=== PATIENT | male | born 1995 | race Caucasian/White ===

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

== ENCOUNTER 2017-02-10 12:19 | Emergency (ER) | payer MEDICAID ==
--- NOTE | 2017-02-10 12:34 | ER Document Report ---
HPI - HPI Patient complains to provider of: hand injury Pain Level: 3 Context: 21 yo male c/o pain and swelling to right hand x 1 day. impact drill fell on hand last night while working on car Associated Symptoms: None Exacerbated by: Movement Relieved by: Denies Similar symptoms previously: No Recently seen / treated by doctor: No - ROS Systems Reviewed and Negative: Yes All other systems reviewed and negative - REPRODUCTIVE Reproductive: DENIES: : - DERM Skin Color: Normal Past Medical History - General Information source: Patient - Social History Smoking Status: Current Every Day Smoker Frequency of alcohol use: None Drug Abuse: None Lives with: Family Family History: Reviewed & Not Pertinent, DM Patient has suicidal ideation: No Patient has homicidal ideation: No Renal/ Medical History: Denies: Hx Peritoneal Dialysis Psychiatric Medical History: Reports: Hx Attention Deficit Hyperactivity Disorder Past Surgical History: Reports: Hx Oral Surgery - Immunizations Immunizations up to date: Yes Hx Diphtheria, Pertussis, Tetanus Vaccination: Yes Vertical Provider Document - CONSTITUTIONAL Agree With Documented VS: Yes Exam Limitations: No Limitations General Appearance: WD/WN, No Apparent Distress - INFECTION CONTROL TRAVEL OUTSIDE OF THE [place] IN LAST 30 DAYS: No - HEENT HEENT: Atraumatic, PERRLA - NECK Neck: Normal Inspection, Supple - RESPIRATORY Respiratory: Breath Sounds Normal, No Respiratory Distress O2 Sat by Pulse Oximetry: 99 - CARDIOVASCULAR Cardiovascular: Regular Rate, Regular Rhythm - MUSCULOSKELETAL/EXTREMETIES Musculoskeletal/Extremeties: Tender, Edema - right dorsal hand, Eccymosis Course - Re-evaluation Re-evalutation: 02/10/17 13:21 xray negative. results reviewed with patient. panchito wrap applied. pt stable for discharge - Vital Signs Vital signs: Temp Pulse Resp BP Pulse Ox 98.0 F 81 14 133/76 H 99 02/10/17 12:23 02/10/17 12:23 02/10/17 12:23 02/10/17 12:23 02/10/17 12:23 Procedures - Immobilization right hand Pre-Proc Neuro Vasc Exam: Normal Immobilizer type: Panchito wrap Performed by: PCT Post-Proc Neuro Vasc Exam: Normal Alignment checked and good: Yes Discharge - Discharge Clinical Impression: Contusion of right hand Qualifiers: Encounter type: initial encounter Qualified Code(s): S60.221A - Contusion of right hand, initial encounter Condition: Stable Disposition: HOME, SELF-CARE Instructions: Contusion ([facility]), Panchito Wrap ([facility]), Ice & Elevation ([facility]), Ibuprofen (General) ([facility]) Additional Instructions: your xrays were negative for fracture today wear panchito wrap for comfort keep hand elevated as much as possible motrin for swelling and pain follow up with primary care if symptoms persist more than 10 days Prescriptions: Ibuprofen [Motrin 800 Mg Tablet] 800 mg PO Q6H #20 tablet
--- NOTE | 2017-02-10 13:17 | RADIOLOGY REPORT (SQ) ---
EXAM DESCRIPTION: HAND RIGHT 3 VIEWS COMPLETED DATE/TIME: 02/10/2017 1:08 pm REASON FOR STUDY: trauma, drill fell on hand COMPARISON: 12/03/2016. EXAM PARAMETERS: NUMBER OF VIEWS: Three views. TECHNIQUE: AP, lateral and oblique radiographic images acquired of the right hand. LIMITATIONS: None. FINDINGS: MINERALIZATION: Normal. BONES: No acute fracture or dislocation. No worrisome bone lesions. JOINTS: No effusions. SOFT TISSUES: Dorsal soft tissue swelling. No foreign body. OTHER: No other significant finding. IMPRESSION: SOFT TISSUE SWELLING. NO ACUTE BONY FINDINGS. TECHNICAL DOCUMENTATION: JOB ID: [id number] [employer]- All Rights Reserved
[2017-02-10 13:55] VITALS: BP 132/74
== END 2017-02-10 13:40 | disposition home or self-care (01) ==
LOC: ER 12:19
DX: S60.221A Contusion of right hand, initial encounter (principal); F17.200 Nicotine dependence, unspecified, uncomplicated; W20.8XXA Other cause of strike by thrown, projected or falling object, initial encounter; Y92.008 Other place in unspecified non-institutional (private) residence as the place of occurrence of the external cause
CPT/HCPCS: 99283

== ENCOUNTER 2017-02-27 17:15 | Emergency (ER) | payer MEDICAID ==
[2017-02-27 17:18] VITALS: BP 127/76
--- NOTE | 2017-02-27 18:45 | RADIOLOGY REPORT (SQ) ---
EXAM DESCRIPTION: HAND RIGHT 3 VIEWS COMPLETED DATE/TIME: 02/27/2017 6:36 pm REASON FOR STUDY: Laceration from broken window COMPARISON: None. EXAM PARAMETERS: NUMBER OF VIEWS: Three views. TECHNIQUE: AP, lateral and oblique radiographic images acquired of the right hand. LIMITATIONS: None. FINDINGS: MINERALIZATION: Normal. BONES: No acute fracture or dislocation. No worrisome bone lesions. JOINTS: No effusions. SOFT TISSUES: No soft tissue swelling; no significant soft tissue injury is evident. No foreign body . OTHER: No other significant finding. IMPRESSION: NO EVIDENCE OF ACUTE OSSEOUS INJURY OR RETAINED RADIOPAQUE FOREIGN BODY. PLEASE NOTE TH AT MOST TYPES OF GLASS ARE NOT EXPECTED TO BE RADIOPAQUE. TECHNICAL DOCUMENTATION: JOB ID: [id number] [employer]- All Rights Reserved
[2017-02-27] MEDS ORDERED: LIDOCAINE 1% INJ-PF (10 MG/ML) 30 ML SDV INJ ONE (19:18)
[2017-02-27] MEDS ORDERED: LIDOCAINE 1% INJ-PF (10 MG/ML) 30 ML SDV ONE (19:22)
--- NOTE | 2017-02-27 19:24 | ER Document Report ---
ED Hand/Wrist Injury - General Chief Complaint: Laceration Stated Complaint: HAND LACERATION Time Seen by Provider: 02/27/17 18:16 Mode of Arrival: Ambulatory Information source: Patient Notes: 12-year-old male presents to ED for laceration to his right hand. He states he was picking up a piece of glass window pain when he had a glass on a cement wall shattering the glass cutting his hand. TRAVEL OUTSIDE OF THE [place] IN LAST 30 DAYS: No - HPI Injury to: Hand, Index finger Onset: This afternoon Where: Home Timing: Still present Quality of pain: Sharp Severity: Moderate Pain Level: 2 Context: Laceration - Related Data Allergies/Adverse Reactions: No Known Allergies Allergy (Verified 02/27/17 17:16) Past Medical History - General Information source: Patient - Social History Smoking Status: Never Smoker Cigarette use (# per day): No Chew tobacco use (# tins/day): No Smoking Education Provided: No Frequency of alcohol use: None Drug Abuse: None Occupation: [employer] Lives with: Family Family History: DM, Hypertension. denies: None, Reviewed & Not Pertinent, Arthritis, CAD, COPD, CVA, Hyperlipidemia, Malignancy, Thyroid Disfunction, Other Patient has suicidal ideation: No Patient has homicidal ideation: No - Past Medical History Cardiac Medical History: Reports: None Pulmonary Medical History: Reports: None EENT Medical History: Reports: None Neurological Medical History: Reports: None Endocrine Medical History: Reports: None Renal/ Medical History: Reports: None Malignancy Medical History: Reports None GI Medical History: Reports: None Musculoskeltal Medical History: Reports None Skin Medical History: Reports None Psychiatric Medical History: Reports: Hx Attention Deficit Hyperactivity Disorder Traumatic Medical History: Reports: None Infectious Medical History: Reports: None Past Surgical History: Reports: Hx Adenoidectomy, Hx Oral Surgery, Hx Tonsillectomy - Immunizations Immunizations up to date: Yes Hx Diphtheria, Pertussis, Tetanus Vaccination: Yes Review of Systems - Review of Systems Constitutional: No symptoms reported EENT: No symptoms reported Cardiovascular: No symptoms reported Respiratory: No symptoms reported Gastrointestinal: No symptoms reported Genitourinary: No symptoms reported Male Genitourinary: No symptoms reported Musculoskeletal: Other - In pain after he cut and when a window he was cutting shattered Skin: No symptoms reported Hematologic/Lymphatic: No symptoms reported Neurological/Psychological: No symptoms reported -: Yes All other systems reviewed and negative Physical Exam - Vital signs Vitals: Temp Pulse Resp BP Pulse Ox 98.0 F 75 20 127/76 H 98 02/27/17 17:16 02/27/17 17:16 02/27/17 17:16 02/27/17 17:16 02/27/17 17:16 Interpretation: Normal - General General appearance: Appears well, Alert - HEENT Head: Normocephalic, Atraumatic Eyes: Normal Pupils: PERRL - Respiratory Respiratory status: No respiratory distress Chest status: Nontender Breath sounds: Normal Chest palpation: Normal - Cardiovascular Rhythm: Regular Heart sounds: Normal auscultation Murmur: No - Abdominal Inspection: Normal Distension: No distension Bowel sounds: Normal Tenderness: Nontender Organomegaly: No organomegaly - Back Back: Normal, Nontender - Extremities General upper extremity: Nontender, Normal color, Normal ROM, Normal temperature General lower extremity: Normal inspection, Nontender, Normal color, Normal ROM , Normal temperature, Normal weight bearing. No: Juan's sign Hand: Tender, Laceration, No evidence of human bite, No evidence of FB. No: Tendon deficit - Neurological Neuro grossly intact: Yes Cognition: Normal Orientation: AAOx4 Ladonna Coma Scale Eye Opening: Spontaneous [place] Coma Scale Verbal: Oriented Ladonna Coma Scale Motor: Obeys Commands Ladonna Coma Scale Total: 15 Speech: Normal Motor strength normal: LUE, RUE, LLE, RLE Sensory: Normal - Psychological Associated symptoms: Normal affect, Normal mood - Skin Skin Temperature: Warm Skin Moisture: Dry Skin Color: Normal Skin irregularity: Laceration Location of irregularity: Extremities - 1.5 cm right second finger, 0.5 cm cut on right hand. Irregularity with: Tenderness Course - Vital Signs Vital signs: Temp Pulse Resp BP Pulse Ox 98.0 F 75 20 127/76 H 98 02/27/17 17:16 02/27/17 17:16 02/27/17 17:16 02/27/17 17:16 02/27/17 17:16 - Diagnostic Test Radiology reviewed: Image reviewed, Reports reviewed Procedures - Laceration/Wound Repair Right Finger 2nd digit Time completed: 19:43 Wound length (cm): 1.5 Wound's Depth, Shape: Superficial, Linear Laceration pre-procedure: Other - Surgical scrub Anesthetic type: 1% Lidocaine Wound explored: No foreign body removed Irrigated w/ Saline (mLs): 100 Wound Repaired With: Sutures Suture Size/Type: 5:0, Ethilon Number of Sutures: 2 Layer Closure?: No Post-procedure wound care: Sterile dressing applied Post-procedure NV exam normal: Yes Complications: No Discharge - Discharge Clinical Impression: laceration right 2nd finger Condition: Stable Disposition: HOME, SELF-CARE Additional Instructions: Hand Laceration A laceration on the hand can present special problems. It may be difficult to keep the wound dry. Motion of the fingers can disturb the healing edges. Your work may involve exposure to damaging chemicals or water. Keep the wound clean and dry. If you can't keep the cut dry, undisturbed, and free of chemical exposure, please discuss this with the doctor. If any water or chemical gets onto the dressing, remove it, blot the wound dry, then apply a fresh bandage. Dressings should be changed every day. If you feel the stitches pulling as you move the hand, a splint or other form of protection is needed. If any signs of infection occur (swelling, redness, increasing tenderness, red streaks, tender lumps in the armpit, or fever), see the doctor immediately. SOAP CLEANSING: Gently wash the wound daily using a mild soap (like Ivory, Phisoderm, Neutrogena). Use warm water, rubbing gently until all debris, ooze, and crusting have been washed from the wound. Allow to dry briefly (about 10 minutes) after cleaning. Repeat this cleansing at least three times a day for the first two days and then once or twice a day. ANTIBIOTIC OINTMENT PROTECTION: Your wounds are such that dressing them is not practical or optional. After cleansing, you should apply a thin coating of antibiotic ointment ( Bacitracin, not Neosporin) to the wounds at least three times daily. This lessens infection risk, and may decrease the amount of scarring. Use a q-tip or dull butter knife, not your finger, to apply this ointment. Any debris or ooze which builds up in the ointment should be gently rubbed off with a sterile gauze pad. Harder crusting may need to be gently scrubbed off with a clean wash cloth with soap and warm water, perhaps applying a warm, wet wash cloth to the wound for ten minutes first. Development of redness, severe itching, or blistering may mean allergy to the ointment. See the doctor. TETANUS IMMUNIZATION GIVEN: You have been given an immunization against tetanus. Please record this in your records. In general, a booster is needed only once every 10 years. The tetanus shot protects against tetanus or "lockjaw," which is a complication of certain wound infections (the tetanus shot cannot protect against the actual infection). The immunization site may become warm and red due to local reaction. If this occurs, apply warm compresses and take aspirin or ibuprofen to reduce inflammation and discomfort. Return for evaluation if the reaction becomes severe. FOLLOW-UP CARE: Please return in __2__ days for an infection check and dressing change. Your sutures should be removed in __7___ days. To facilitate a timely removal of your sutures, you may return to the Emergency Department at [facility]. You do not need to call for an appointment, but the best time to come in for suture removal is early in the morning. If you have been referred to another physician for follow-up care, call that physicians office for an appointment as you were instructed. If you experience a significant change in your laceration, or if you are concerned there may be an infection (swelling, redness, drainage, increasing tenderness, red streaks, tender lumps in the armpit or groin above the laceration, or fever) , return to the Emergency Department immediately re-evaluation. Forms: Elevated Blood Pressure Referrals: DUSTY BOLIVAR MD [Primary Care Provider] - Follow up as needed
== END 2017-02-27 20:11 | disposition home or self-care (01) ==
LOC: ER 17:15
PROC: 0HQFXZZ Repair Right Hand Skin, External Approach (ICD-10-PCS; principal; 2017-02-27)
DX: S61.210A Laceration without foreign body of right index finger without damage to nail, initial encounter (principal); S61.411A Laceration without foreign body of right hand, initial encounter; W25.XXXA Contact with sharp glass, initial encounter; Y92.009 Unspecified place in unspecified non-institutional (private) residence as the place of occurrence of the external cause
CPT/HCPCS: 99283

== ENCOUNTER 2017-03-24 10:26 | Emergency (ER) | payer MEDICAID ==
[2017-03-24 10:35] VITALS: BP 116/83
[2017-03-24 12:11] LABS: APPEARANCE,URINE CLEAR; BILIRUBIN,URINE NEGATIVE (NEGATIVE); GLUCOSE, URINE NEGATIVE (NEGATIVE); KETONES,URINE NEGATIVE (NEGATIVE); LEUKOCYTE ESTERASE,URINE NEGATIVE (NEGATIVE); NITRITE,URINE NEGATIVE (NEGATIVE); PROTEIN,URINE NEGATIVE (NEGATIVE); URINE SPECIFIC GRAVITY 1.018; UROBILINOGEN,URINE NEGATIVE mg/dL (<2.0)
--- NOTE | 2017-03-24 12:32 | ER Document Report ---
ED General - General Chief Complaint: Chest Wall Pain Stated Complaint: CHEST PAIN/URINARY SYMPTOMS Time Seen by Provider: 03/24/17 11:41 Notes: 21 yo male presents to ED with 2 complaints. #1 left chest pain intermittant x several months. hurts to breathe, take deep breaths and move trunk. no cough, no shortness of breath, no fever #2 dysuria x 1 week. denies penile discharge, testicular pain. + sexually active in monogamous relationship TRAVEL OUTSIDE OF THE [place] 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 denies: None, Reviewed & Not Pertinent, Arthritis, CAD, COPD, CVA, Hyperlipidemia, Malignancy, Thyroid Disfunction, Other Patient has suicidal ideation: No Patient has homicidal ideation: No - Medical History Medical History: Negative Renal/ Medical History: Denies: Hx Peritoneal Dialysis Psychiatric Medical History: Reports: Hx Attention Deficit Hyperactivity Disorder Past Surgical History: Reports: Hx Adenoidectomy, Hx Oral Surgery, Hx Tonsillectomy - Immunizations Immunizations up to date: Yes Hx Diphtheria, Pertussis, Tetanus Vaccination: Yes Review of Systems - Review of Systems Constitutional: No symptoms reported EENT: No symptoms reported Cardiovascular: Chest pain, Heart racing Respiratory: No symptoms reported Gastrointestinal: No symptoms reported Genitourinary: Burning, Dysuria Male Genitourinary: No symptoms reported Musculoskeletal: No symptoms reported Skin: No symptoms reported Hematologic/Lymphatic: No symptoms reported Neurological/Psychological: No symptoms reported Physical Exam - Vital signs Vitals: Temp Pulse Resp BP Pulse Ox 98.2 F 89 16 116/83 100 03/24/17 10:33 03/24/17 10:33 03/24/17 10:33 03/24/17 10:33 03/24/17 10:33 Interpretation: Normal - General General appearance: Appears well, Alert - HEENT Head: Normocephalic, Atraumatic Eyes: Normal Pupils: PERRL - Respiratory Respiratory status: No respiratory distress Chest status: Tender - focal tenderness left lateral intercostals Breath sounds: Normal Chest palpation: Normal - Cardiovascular Rhythm: Regular Heart sounds: Normal auscultation Murmur: No - Abdominal Inspection: Normal Distension: No distension Bowel sounds: Normal Tenderness: Nontender Organomegaly: No organomegaly - Back Back: Normal, Nontender - Extremities General upper extremity: Normal inspection, Nontender, Normal color, Normal ROM , Normal temperature General lower extremity: Normal inspection, Nontender, Normal color, Normal ROM , Normal temperature, Normal weight bearing. No: Juan's sign - Neurological Neuro grossly intact: Yes Cognition: Normal Orientation: AAOx4 [place] Coma Scale Eye Opening: Spontaneous [place] Coma Scale Verbal: Oriented [place] Coma Scale Motor: Obeys Commands [place] Coma Scale Total: 15 Speech: Normal Motor strength normal: LUE, RUE, LLE, RLE Sensory: Normal - Psychological Associated symptoms: Normal affect, Normal mood - Skin Skin Temperature: Warm Skin Moisture: Dry Skin Color: Normal Course - Re-evaluation Re-evalutation: 03/24/17 13:59 EKG, Chest xray and labs all unremarkable. results reviewed with patient and parent. pt stable for discharge and follow up with primary care - Vital Signs Vital signs: Temp Pulse Resp BP Pulse Ox 98.2 F 89 16 116/83 100 03/24/17 10:33 03/24/17 10:33 03/24/17 10:33 03/24/17 10:33 03/24/17 10:33 - Laboratory Result Diagrams: 03/24/17 12:25 03/24/17 12:25 Laboratory results interpreted by me: 03/24/17 03/24/17 12:25 12:25 RBC 5.82 H Glucose 59 L Total Bilirubin 1.6 H Total Protein 9.0 H Discharge - Discharge Clinical Impression: Chest wall pain, Dysuria Condition: Stable Disposition: HOME, SELF-CARE Instructions: Chest Wall Pain ([facility]), Anti-Inflammatory Medication ([facility]) Additional Instructions: Your labs, xray and EKG were normal today Take anti inflammatory medication as needed for discomfort Follow up with primary care for further evaluation if symptoms persist Prescriptions: Ibuprofen [Motrin 800 Mg Tablet] 800 mg PO Q6H #20 tablet
[2017-03-24 12:48] LABS: ABSOLUTE EOSINOPHILS # (AUTO) 0.1 10^3/uL (0.0-0.6); ABSOLUTE LYMPHOCYTES (AUTO) 1.9 10^3/uL (0.5-4.7); ABSOLUTE MONOCYTES (AUTO) 0.4 10^3/uL (0.1-1.4); ABSOLUTE NEUT (AUTO) 3.2 10^3/uL (1.7-8.2); BASOPHILS % (AUTO) 0.8 % (0-2); EOSINOPHILS % (AUTO) 1.5 % (0-6); HEMATOCRIT 50.9 % (37.9-51.0); HEMOGLOBIN 16.6 g/dL (13.5-17.0); HGB HCT DIFFERENCE -1.1; LYMPHOCYTES % (AUTO) 33.9 % (13-45); MEAN CORPUSCULAR HEMOGLOBIN 28.5 pg (27.0-33.4); MEAN CORPUSCULAR HGB CONC 32.6 g/dL (32.0-36.0); MEAN CORPUSCULAR VOLUME 88 fl (80-97); MONOCYTES % (AUTO) 7.4 % (3-13); RED BLOOD COUNT 5.82 10^6/uL (4.35-5.55); RED CELL DISTRIBUTION WIDTH 12.2 % (11.5-14.0); SEGMENTED NEUTROPHILS % (AUTO) 56.4 % (42-78); WHITE BLOOD COUNT 5.7 10^3/uL (4.0-10.5)
[2017-03-24 13:01] LABS: ALANINE AMINOTRANSFERASE 24 U/L (10-40); ALBUMIN 5.1 g/dL (3.7-5.6); ALKALINE PHOSPHATASE 95 U/L (65-260); ANION GAP 15 (5-19); ASPARTATE AMINO TRANSFERASE 24 U/L (10-45); BILIRUBIN,DIRECT 0.3 mg/dL (0.0-0.4); BILIRUBIN,TOTAL 1.6 mg/dL (0.2-1.3); BLOOD UREA NITROGEN 13 mg/dL (7-20); CARBON DIOXIDE 26 mmol/L (22-30); CHLORIDE 103 mmol/L (98-107); GLUCOSE 59 mg/dL (75-110); POTASSIUM 4.3 mmol/L (3.6-5.0); SODIUM 144.1 mmol/L (137-145)
--- NOTE | 2017-03-24 13:02 | EKG REPORT ---
SEVERITY:- BORDERLINE ECG - SINUS RHYTHM NONSPECIFIC ST-T CHANGES LATERAL LEADS. : Confirmed by: Marin Greco MD 24-Mar-2017 13:01:50
--- NOTE | 2017-03-24 13:17 | RADIOLOGY REPORT (SQ) ---
EXAM DESCRIPTION: CHEST PA/LAT COMPLETED DATE/TIME: 03/24/2017 12:59 pm REASON FOR STUDY: chest pain COMPARISON: None. EXAM PARAMETERS: NUMBER OF VIEWS: two views TECHNIQUE: Digital Frontal and Lateral radiographic views of the chest acquired. RADIATION DOSE: NA LIMITATIONS: none FINDINGS: LUNGS AND PLEURA: No opacities, masses or pneumothorax. No pleural effusion. MEDIASTINUM AND HILAR STRUCTURES: No masses or contour abnormalities. HEART AND VASCULAR STRUCTURES: Heart normal size. No evidence for failure. BONES: No acute findings. HARDWARE: None in the chest. OTHER: No other significant finding. IMPRESSION: NO SIGNIFICANT RADIOGRAPHIC FINDING IN THE CHEST. TECHNICAL DOCUMENTATION: JOB ID: [id number] [employer]- All Rights Reserved
[2017-03-24 13:41] LABS: CHLAM PCR NOT DETECTED (NOT DETECT)
== END 2017-03-24 14:30 | disposition home or self-care (01) ==
LOC: ER 10:26
DX: R07.89 Other chest pain (principal); R30.0 Dysuria
CPT/HCPCS: 36415; 71020; 80053; 81001; 84443; 85025; 87491; 87591; 93005; 93010; 99284

== ENCOUNTER 2017-04-03 16:37 | Emergency (ER) | payer MEDICAID ==
[2017-04-03 16:49] VITALS: BP 131/82
[2017-04-03] MEDS ORDERED: CEPHALEXIN 500 MG CAPSULE PO ONE (17:25)
--- NOTE | 2017-04-03 17:37 | ER Document Report ---
HPI - HPI Patient complains to provider of: laceration Pain Level: 3 Context: Patient is a 21-year-old male presents emergency department complaining of right hand laceration. Patient has wound knee radial aspect of the second digit as well as the palmar aspect of the third digit. cut it on something "metal" Patient admits to bleeding. 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 Patient admits to contact with fecal matter. tetanus UTD - CARDIOVASCULAR Cardiovascular: DENIES: Chest pain - REPRODUCTIVE Reproductive: DENIES: : - DERM Skin Color: Normal Past Medical History - Social History Smoking Status: Never Smoker Chew tobacco use (# tins/day): No Frequency of alcohol use: None Drug Abuse: None Family History: DM, Hypertension. denies: None, Reviewed & Not Pertinent, Arthritis, CAD, COPD, CVA, Hyperlipidemia, Malignancy, Thyroid Disfunction, Other Patient has suicidal ideation: No Patient has homicidal ideation: No Renal/ Medical History: Denies: Hx Peritoneal Dialysis Psychiatric Medical History: Reports: Hx Attention Deficit Hyperactivity Disorder Past Surgical History: Reports: Hx Adenoidectomy, Hx Oral Surgery, Hx Tonsillectomy - Immunizations Immunizations up to date: Yes Hx Diphtheria, Pertussis, Tetanus Vaccination: Yes Vertical Provider Document - CONSTITUTIONAL Agree With Documented VS: Yes Exam Limitations: No Limitations General Appearance: WD/WN, No Apparent Distress - INFECTION CONTROL TRAVEL OUTSIDE OF THE [place] IN LAST 30 DAYS: No - RESPIRATORY O2 Sat by Pulse Oximetry: 99 - CARDIOVASCULAR Pulses: Normal: Radial - cap refill < 2 seconds - MUSCULOSKELETAL/EXTREMETIES Musculoskeletal/Extremeties: MAEW, FROM, Non-Tender - NEURO Level of Consciousness: Awake, Alert, Appropriate Motor/Sensory: No Motor Deficit, No Sensory Deficit - DERM Integumentary: Warm, Dry, Laceration - superficial flap on the palmar aspect of the right third digit without signs of bleeding or involvement of the dermis, superficial abrasion of the second digit Course - Re-evaluation Re-evalutation: 04/03/17 19:53 Patient is a 21-year-old male with superficial abrasions and superficial flap laceration of the hand. Irrigated with Betadine and saline. Placed on Keflex for prophylaxis to cover for any fecal contaminant. Abrasion dressed with Steri -Strips. Patient discharged home. - Vital Signs Vital signs: Temp Pulse Resp BP Pulse Ox 98.3 F 66 16 131/82 H 99 04/03/17 16:48 04/03/17 16:48 04/03/17 16:48 04/03/17 16:48 04/03/17 16:48 Discharge - Discharge Clinical Impression: Laceration Condition: Good Disposition: HOME, SELF-CARE Instructions: Prophylactic Antibiotic ([facility]), Soap Cleansing ([facility]), Non-Sutured Laceration ([facility]) Additional Instructions: Leave the Steri-Strips intact until it falls off on its own. Please try to keep her hands clean, dry and covered until this wound heals. Please take all of your antibiotics as prescribed. Prescriptions: Cephalexin Monohydrate [Keflex 500 mg Capsule] 500 mg PO QID #20 capsule Forms: Elevated Blood Pressure Referrals: DUSTY BOLIVAR MD [Primary Care Provider] - Follow up as needed
== END 2017-04-03 18:00 | disposition home or self-care (01) ==
LOC: ER 16:37
DX: S61.212A Laceration without foreign body of right middle finger without damage to nail, initial encounter (principal); W45.8XXA Other foreign body or object entering through skin, initial encounter; Y93.89 Activity, other specified; Y92.79 Other farm location as the place of occurrence of the external cause; Y99.0 Civilian activity done for income or pay
CPT/HCPCS: 99282

== ENCOUNTER 2017-05-04 22:09 | Emergency (ER) | payer MEDICAID ==
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
[2017-05-05] MEDS ORDERED: KETOROLAC TROMETHAMINE INJ/PF 30 MG/1 ML SDV IV ONE (00:26)
[2017-05-05] MEDS ORDERED: LIDOCAINE 5% (700 MG) TRANSDERMAL ADH..PATCH TP ONE (00:26)
[2017-05-05] MEDS ORDERED: CYCLOBENZAPRINE HCL 10 MG TABLET PO ONE (00:26)
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
[2017-05-05 01:49] VITALS: BP 119/82
== END 2017-05-05 01:10 | disposition home or self-care (01) ==
LOC: ER 22:09
DX: M54.9 Dorsalgia, unspecified (principal); M25.511 Pain in right shoulder; M79.1 Myalgia; Y04.2XXA Assault by strike against or bumped into by another person, initial encounter; Y92.000 Kitchen of unspecified non-institutional (private) residence as the place of occurrence of the external cause
CPT/HCPCS: 99284; 96374; 73030; J3490 ×2; J1885

== ENCOUNTER 2017-05-31 10:37 | Emergency (ER) | payer MEDICAID, OTHER ==
[2017-05-31] MEDS ORDERED: DEXAMETHASONE SOD PHOS INJ 10 MG/1 ML VIAL IM ONE (11:21)
[2017-05-31] MEDS ORDERED: IBUPROFEN 800 MG TABLET PO ONE (11:21)
--- NOTE | 2017-05-31 11:23 | ER Document Report ---
ED Neck/Back Problem - General Chief Complaint: Low Back Pain Stated Complaint: BACK PAIN Time Seen by Provider: 05/31/17 11:10 Mode of Arrival: Ambulatory Information source: Patient Notes: 21-year-old male presents to ED for low back pain after work yesterday. He states he was lifting and dragging things and he felt a pop. He has had pain in his lower back and radiating down both legs since then. He states he has increased pain with walking or sitting. He denies any loss of control of bowel or bladder, loss of muscle control, or any saddle anesthesia. He states he does get nauseated at time from the pain. TRAVEL OUTSIDE OF THE [place] 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 denies: Incontinence, Like prior neck/back pain, Motor loss, Numbness/tingling, Sensory loss, Sweaty, Unable to urinate, Upper back pain Exacerbated by: Sitting position, Other - Walking Relieved by: Nothing Similar symptoms previously: Yes Recently seen / treated by doctor: Yes - Related Data Allergies/Adverse Reactions: No Known Allergies Allergy (Verified 05/31/17 10:41) Past Medical History - General Information source: Patient - Social History Smoking Status: Never Smoker Cigarette use (# per day): No Chew tobacco use (# tins/day): No Smoking Education Provided: No Frequency of alcohol use: None Lives with: Family Family History: DM, Hypertension Patient has suicidal ideation: No Patient has homicidal ideation: No - Past Medical History Cardiac Medical History: Reports: None Pulmonary Medical History: Reports: Hx Bronchitis EENT Medical History: Reports: None Neurological Medical History: Reports: None Endocrine Medical History: Reports: None Renal/ Medical History: Reports: None Malignancy Medical History: Reports None GI Medical History: Reports: None Musculoskeltal Medical History: Reports Hx Musculoskeletal Deformity - Degenerative disc disease with sciatica, Reports Hx Musculoskeletal Trauma Skin Medical History: Reports None Psychiatric Medical History: Reports: Hx Attention Deficit Hyperactivity Disorder Traumatic Medical History: Denies: Hx Fractures Infectious Medical History: Reports: None Past Surgical History: Reports: Hx Adenoidectomy, Hx Oral Surgery, Hx Tonsillectomy - Immunizations Immunizations up to date: Yes Hx Diphtheria, Pertussis, Tetanus Vaccination: Yes Review of Systems - Review of Systems Constitutional: No symptoms reported EENT: No symptoms reported Cardiovascular: No symptoms reported Respiratory: No symptoms reported Gastrointestinal: No symptoms reported Genitourinary: No symptoms reported Male Genitourinary: No symptoms reported Musculoskeletal: Back pain, Muscle pain, Muscle stiffness Skin: No symptoms reported Hematologic/Lymphatic: No symptoms reported Neurological/Psychological: No symptoms reported -: Yes All other systems reviewed and negative Physical Exam - Vital signs Vitals: Temp Pulse Resp BP Pulse Ox 98.6 F 89 18 123/75 99 05/31/17 10:40 05/31/17 10:40 05/31/17 10:40 05/31/17 10:40 05/31/17 10:40 Interpretation: Normal - General General appearance: Appears well, Alert - HEENT Head: Normocephalic, Atraumatic Eyes: Normal Pupils: PERRL - Respiratory Respiratory status: No respiratory distress Chest status: Nontender Breath sounds: Normal Chest palpation: Normal - Cardiovascular Rhythm: Regular Heart sounds: Normal auscultation Murmur: No - Abdominal Inspection: Normal Distension: No distension Bowel sounds: Normal Tenderness: Nontender Organomegaly: No organomegaly - Back Back: Normal, Tender. No: Deformity/step-off, CVA tenderness, Vertebra tenderness - . Vertebral tenderness radiating down the bilateral legs. Negative leg lift., Scars, Scoliosis, Wounds, Other - Extremities General upper extremity: Normal inspection, Nontender, Normal color, Normal ROM , Normal temperature General lower extremity: Normal inspection, Nontender, Normal color, Normal ROM , Normal temperature, Normal weight bearing. No: Juan's sign - Neurological Neuro grossly intact: Yes Cognition: Normal Orientation: AAOx4 Ladonna Coma Scale Eye Opening: Spontaneous Willis Coma Scale Verbal: Oriented Ladonna Coma Scale Motor: Obeys Commands Willis Coma Scale Total: 15 Speech: Normal Motor strength normal: LUE, RUE, LLE, RLE Sensory: Normal - Psychological Associated symptoms: Normal affect, Normal mood - Skin Skin Temperature: Warm Skin Moisture: Dry Skin Color: Normal Course - Re-evaluation Re-evalutation: 05/31/17 15:16 Discussed x-ray with patient and patient was given a written report of the x- ray patient given prescription for ibuprofen and muscle relaxants and instructed to follow-up with his primary doctor. - Vital Signs Vital signs: Temp Pulse Resp BP Pulse Ox 98.1 F 80 16 120/70 100 05/31/17 13:02 05/31/17 13:02 05/31/17 13:02 05/31/17 13:02 05/31/17 13:02 - Diagnostic Test Radiology reviewed: Image reviewed, Reports reviewed Discharge - Discharge Clinical Impression: mild facit arthropathy Low back pain Qualifiers: Chronicity: chronic Back pain laterality: bilateral Sciatica presence: with sciatica Sciatica laterality: bilateral sciatica Qualified Code(s): M54.42 - Lumbago with sciatica, left side Scoliosis Qualifiers: Scoliosis type: idiopathic Idiopathic scoliosis type: other Spinal region: lumbosacral Qualified Code(s): M41.27 - Other idiopathic scoliosis, lumbosacral region Condition: Stable Disposition: HOME, SELF-CARE Instructions: Use of Rftk-Hwx-Zmmlewd Ibuprofen ([facility]), Stretching Exercises for the Back ([facility]) Additional Instructions: LOW BACK PAIN: Three out of every four people will have an episode of disabling back pain during their lifetime. Most commonly the pain is due to straining of the muscles and ligaments in the low back. Usual treatment includes: (1) Rest on a firm surface. Avoid lying on your stomach. (2) Ice pack the painful area. After a few days, gentle heat may be used intermittently to relax the area, or ice packs can be continued. (3) Medication may be needed -- muscle relaxers and antiinflammatory medicines are commonly used. (4) As the back improves, exercises are prescribed to strengthen the back and abdominal muscles. Your doctor will advise you on the proper care for your back at each stage in your recovery. You may be better in a few days -- or healing may take several weeks. If new symptoms of a "herniated disc" (radiation of pain, numbness, or tingling down the back of the leg or weakness in the leg) occur, you should be re-examined. Further testing may be necessary. Chronic Back Pain Chronic back pain (pain persisting longer than three months) is a common problem. A medical evaluation can look for herniated disc, arthritis, osteoporosis, tumors, and infections. But at least half the time, there's no obvious treatable cause. Anxiety and depression tend to worsen back pain. Ibuprofen or other anti-inflammatory medicine can help. A heating pad, used for 15-20 minutes at a time, can ease pain. For this type of back pain, narcotic medicines should be avoided. Muscle relaxers are rarely helpful unless you're having spasms. Activity is important. Find an aerobic exercise program that your back can tolerate. Too much rest makes back pain worse. Specific back exercises are usually prescribed to strengthen the back and abdominal muscles. Often, a physical therapist can help. Avoid heavy lifting, working while bent over, or standing with both knees straight. Most back pain patients do better with a firm mattress. If new symptoms of a "herniated disc" (radiation of pain, numbness, or tingling down the back of the leg or weakness in the leg) occur, you should be re-examined. Chronic Pain Control Stress, inactivity, and depression make pain more severe regardless of the cause of the pain. Stress and poor physical condition can cause pain such as headaches and backache. Relaxation: Rest in a quiet place with your eyes closed for 20 minutes twice daily. Concentrate on a pleasant image, or simply "feel" your breathing. Clear your mind. Stress management: Deal with your "stressors." Either take action, or eliminate the stressor from your life. Don't let things hang over you. Accept those things you can't change. Nutrition: Eat small, balanced meals -- don't skip, don't overeat. Meals should be high-carbohydrate, low-sugar, low-fat. Exercise: Exercise helps painful conditions and eases stress. Get 30 minutes of moderate exercise, five days a week. Do an activity that does not flare your pain. Precautions: Pain which continues to disrupt daily activities, or which changes in nature, requires a medical evaluation. Pain Clinic referral is available. We do not manage chronic pain in the Emergency Department. We will try to appropriately help you through an acute flare of your chronic painful condition , but for on-going chronic pain that does not improve, you will need to see your private doctor or painter [employer]. We do not provide repeated medication management of chronic painful conditions. If you wish, we can provide the name of local pain management physicians. Sciatica Your symptoms suggest "sciatica." The pain of sciatica typically radiates down the leg. Numbness in the foot or calf may also occur. Sciatica is caused by irritation of the sciatic nerve or its branches. The irritation can be due to a herniated disk in the spine, swelling and inflammation in the muscles surrounding the sciatic nerve, or direct injury of the nerve itself. Most cases of sciatica will resolve with medical treatment. Bed rest is usually recommended initially. Surgery is only necessary when the condition will not improve with rest and antiinflammatory medication. Muscle relaxers are often given if muscle soreness is present. A CAT scan of the back may be performed if a herniated disk is suspected. Re-examination is necessary if you develop increasing numbness, localized weakness in the foot or ankle, or if the pain does not respond to rest. STEROID MEDICATION: You have been given an injection of medicine of the cortisone/steroid class. This medication is used to control inflammation or allergy. It is often continued as a pill for a short period of time, until the acute process subsides. There are usually no side effects from short-term use of cortisone-like medications. Some persons feel an increased sense of well-being and are not sleepy at bedtime. Long-term use of cortisone medications is best avoided, unless required for a severe condition. If your condition does not remit, or relapses after the course of corticosteroid medication, you should consult your physician. Antinausea Medication You have been given a medication to suppress nausea and vomiting. This type of medication can be given as a shot, pill, or suppository. It will usually last for many hours. Pills and shots usually last six to eight hours, suppositories last about 12 hours. For the typical illness, only one or two doses of the medication may be necessary. Mild lightheadedness may occur. This type of medicine can cause drowsiness. Do not drive or operate dangerous machinery while under its influence. Do not mix with alcohol. See your doctor at once if you have muscle spasms or tightness, or uncontrollable motions (particularly of the neck, mouth, or jaw). Persistent vomiting or severe lightheadedness should also be evaluated by the physician. Muscle Relaxers Muscle relaxing medications are usually prescribed for acute muscle spasm or injury to the neck and back. They are often combined with antiinflammatory pain medication for increased relief. You may stop the muscle relaxer when the pain and stiffness have improved. Start the medication again if spasms recur. Muscle relaxers may cause drowsiness, especially with the first dose. Do not operate machinery or drive while under the effects of the medication. Most muscle relaxers last up to 24 hours. Do not combine the medication with alcohol. ICE PACKS: Apply ice packs frequently against the painful area. Many different schedules are recommended, such as "20 minutes on, 20 minutes off" or "one hour ice, two hours rest." If you need to work, you may need to go longer between ice treatments. You should plan to have the area ice packed AT LEAST one fourth of the time. The ice should be applied over the wrap, tape, or splint, or over a layer of cloth -- not directly against the skin. Some ice bags have a built-in cloth and can be put directly on the skin. WARM PACKS: After approximately two days, apply gentle heat (such as a heating pad or hot water bottle) for about 20 to 30 minutes about every two hours -- at least four times daily. Warmth and elevation will help you make a more rapid recovery , and will ease the pain considerably. Do not use HOT heat, and never apply heat for longer than 30 minutes. The continuous heat can invisibly damage skin and muscles -- even when no burn is seen on the surface. Damaged muscles can make you MORE sore. FOLLOW-UP CARE: If you have been referred to a physician for follow-up care, call the physician s office for an appointment as you were instructed or within the next two days. If you experience worsening or a significant change in your symptoms, notify the physician immediately or return to the Emergency Department at any time for re-evaluation. Prescriptions: Ibuprofen 600 mg PO Q8HP PRN #20 tablet PRN Reason: Cyclobenzaprine HCl [Flexeril 5 mg Tablet] 5 mg PO TID #15 tablet Promethazine HCl [Phenergan 25 mg Tablet] 25 mg PO Q6H PRN #15 tablet PRN Reason: Forms: Return to Work Referrals: DUSTY BOLIVAR MD [Primary Care Provider] - Follow up as needed
--- NOTE | 2017-05-31 12:23 | RADIOLOGY REPORT (SQ) ---
EXAM DESCRIPTION: L SPINE WHOLE COMPLETED DATE/TIME: 05/31/2017 11:51 am REASON FOR STUDY: lumbar back pain after lifting radiates both legs COMPARISON: 07/31/2014 NUMBER OF VIEWS: Five views including obliques. TECHNIQUE: AP, lateral, oblique, and sacral radiographic images acquired of the lumbar spine. LIMITATIONS: None. FINDINGS: MINERALIZATION: Normal. SEGMENTATION: Normal. No transitional anatomy. ALIGNMENT: Mild levoscoliosis. VERTEBRAE: Maintained height. No fracture or worrisome bone lesion. DISCS: Preserved height. No significant osteophytes or end plate irregularity. POSTERIOR ELEMENTS: Mild hypertrophic facet changes are present at L5-S1. HARDWARE: None in the spine. PARASPINAL SOFT TISSUES: Normal. PELVIS: Intact as visualized. No fractures or worrisome bone lesions. SI joints intact. OTHER: No other significant finding. IMPRESSION: Mild scoliosis. Mild facet arthropathy. TECHNICAL DOCUMENTATION: JOB ID: [id number] [employer]- All Rights Reserved
[2017-05-31 13:09] VITALS: BP 120/70
== END 2017-05-31 13:05 | disposition home or self-care (01) ==
LOC: ER 10:37
DX: M54.42 Lumbago with sciatica, left side (principal); M41.27 Other idiopathic scoliosis, lumbosacral region; M12.9 Arthropathy, unspecified; M54.5 Low back pain; M79.604 Pain in right leg; M79.605 Pain in left leg; X50.9XXA Other and unspecified overexertion or strenuous movements or postures, initial encounter
CPT/HCPCS: 99283; 96372; 72110; J3490; J1100

== ENCOUNTER 2017-08-27 17:36 | Emergency (ER) | payer MEDICAID ==
--- NOTE | 2017-08-27 18:08 | ER Document Report ---
HPI - HPI Patient complains to provider of: Cut finger Onset: Just prior to arrival Onset/Duration: Sudden Pain Level: 3 Context: 21-year-old whose tetanus is current, cut his right thumb wall cutting metal with a blade prior to arrival. Associated Symptoms: None Exacerbated by: Movement Relieved by: Denies Similar symptoms previously: No Recently seen / treated by doctor: No - ROS ROS below otherwise negative: Yes Systems Reviewed and Negative: Yes All other systems reviewed and negative - REPRODUCTIVE Reproductive: DENIES: : Past Medical History - General Information source: Patient - Social History Smoking Status: Current Every Day Smoker Frequency of alcohol use: None Drug Abuse: None Lives with: Family Family History: DM, Hypertension Pulmonary Medical History: Reports: Hx Bronchitis Renal/ Medical History: Denies: Hx Peritoneal Dialysis Musculoskeltal Medical History: Reports Hx Arthritis, Reports Hx Musculoskeletal Deformity - Degenerative disc disease with sciatica, Reports Hx Musculoskeletal Trauma Psychiatric Medical History: Reports: Hx Attention Deficit Hyperactivity Disorder Traumatic Medical History: Denies: Hx Fractures Past Surgical History: Reports: Hx Adenoidectomy, Hx Oral Surgery, Hx Tonsillectomy - Immunizations Immunizations up to date: Yes Hx Diphtheria, Pertussis, Tetanus Vaccination: Yes Vertical Provider Document - CONSTITUTIONAL Agree With Documented VS: Yes Exam Limitations: No Limitations - INFECTION CONTROL TRAVEL OUTSIDE OF THE [place] IN LAST 30 DAYS: No - HEENT HEENT: Normocephalic - NECK Neck: Supple - RESPIRATORY O2 Sat by Pulse Oximetry: 99 - MUSCULOSKELETAL/EXTREMETIES Musculoskeletal/Extremeties: MAEW, FROM, Tender - Partial-thickness 1 cm cut to the right thumb over the mid proximal dorsal joints. - NEURO Level of Consciousness: Awake, Alert Motor/Sensory: No Motor Deficit, No Sensory Deficit - DERM Integumentary: Warm, Dry, Laceration - See above Course - Re-evaluation Re-evalutation: 08/27/17 19:38 X-ray is negative per radiologist there was no bone injury - Vital Signs Vital signs: Temp Pulse Resp BP Pulse Ox 98.3 F 67 16 140/76 H 99 08/27/17 17:46 08/27/17 17:46 08/27/17 17:46 08/27/17 17:46 08/27/17 17:46 Procedures - Laceration/Wound Repair Right Thumb Time completed: 19:38 Wound length (cm): 1 Wound's Depth, Shape: Linear, Other - partial thickness Laceration pre-procedure: Sterile drapes applied Anesthetic type: 1% Lidocaine Volume Anesthetic (mLs): 3 Wound explored: Clean Irrigated w/ Saline (mLs): 60 Wound Repaired With: Sutures Suture Size/Type: 4:0, Prolene Number of Sutures: 2 Layer Closure?: No Post-procedure NV exam normal: Yes Complications: No Discharge - Discharge Clinical Impression: Right thumb laceration repair Condition: Good Disposition: HOME, SELF-CARE Instructions: Acetaminophen, Antibiotic Ointment Protection ([facility]), Use of Over- The-Counter Ibuprofen ([facility]), Laceration Care ([facility]) Additional Instructions: Keep that dressing on for 48 hours Keep the wound clean and dry there after Return to the emergency room for suture removal in 9 days Return sooner if there is any redness swelling pus or heat Please complete the patient satisfaction survey if you get one, and return it.. If you do not receive a survey, then you can go to the [facility] website, [email or web address] and place your comments about your very good care. Thank you very much. It was a pleasure being your medical provider today. Referrals: DUSTY BOLIVAR MD [Primary Care Provider] - Follow up as needed
[2017-08-27] MEDS ORDERED: LIDOCAINE 1% INJ-PF (10 MG/ML) 30 ML SDV INJ ONE (18:36)
--- NOTE | 2017-08-27 18:57 | RADIOLOGY REPORT (SQ) ---
EXAM DESCRIPTION: FINGER RIGHT COMPLETED DATE/TIME: 08/27/2017 6:49 pm REASON FOR STUDY: cut thumb COMPARISON: None. NUMBER OF VIEWS: Three views. TECHNIQUE: AP, lateral, and oblique images acquired of the right thumb. LIMITATIONS: None. FINDINGS: MINERALIZATION: Normal. BONES: No acute fracture or dislocation. No worrisome bone lesions. SOFT TISSUES: No soft tissue swelling. No foreign body. OTHER: No other significant finding. IMPRESSION: NO RADIOGRAPHIC EVIDENCE OF ACUTE INJURY. COMMENT: SITE OF TRAUMA/COMPLAINT MARKED/STAMP COMPLETED: Yes TECHNICAL DOCUMENTATION: JOB ID: [id number] [employer]- All Rights Reserved
[2017-08-27 20:16] VITALS: BP 142/83
== END 2017-08-27 20:16 | disposition home or self-care (01) ==
LOC: ER 17:36
PROC: 0HQFXZZ Repair Right Hand Skin, External Approach (ICD-10-PCS; principal; 2017-08-27)
DX: S61.011A Laceration without foreign body of right thumb without damage to nail, initial encounter (principal); F17.200 Nicotine dependence, unspecified, uncomplicated; W45.8XXA Other foreign body or object entering through skin, initial encounter
CPT/HCPCS: 99283; 73140; 12001; J3490

== ENCOUNTER 2017-09-25 19:19 | Emergency (ER) | payer MEDICAID ==
--- NOTE | 2017-09-25 20:02 | ER Document Report ---
ED Psych Disorder / Suicide - General Chief Complaint: Psych Problem Stated Complaint: PSYCH EVAL Time Seen by Provider: 09/25/17 19:38 Notes: Patient is a 21-year-old male, past medical history anger issues, anxiety, presents after he has had increasing angry outbursts over the past few days. He is unsure about why he continues to become angry. He punched a wall and is complaining of right hand pain. He also hit his head against the wall multiple times and is complaining of a headache. He has never seen a mental health worker for his anger issues and is not on any medications. He denies drug use, blurry vision, focal numbness, tingling, chest pain or shortness of breath. TRAVEL OUTSIDE OF THE [place] IN LAST 30 DAYS: No - Related Data Allergies/Adverse Reactions: No Known Allergies Allergy (Verified 08/27/17 17:41) Past Medical History - General Information source: Patient - Social History Smoking Status: Never Smoker Frequency of alcohol use: None Drug Abuse: None Family History: DM, Hypertension Patient has suicidal ideation: No Patient has homicidal ideation: No Pulmonary Medical History: Reports: Hx Bronchitis Renal/ Medical History: Denies: Hx Peritoneal Dialysis Musculoskeltal Medical History: Reports Hx Arthritis, Reports Hx Musculoskeletal Deformity - Degenerative disc disease with sciatica, Reports Hx Musculoskeletal Trauma Psychiatric Medical History: Reports: Hx Attention Deficit Hyperactivity Disorder Traumatic Medical History: Denies: Hx Fractures Past Surgical History: Reports: Hx Adenoidectomy, Hx Oral Surgery, Hx Tonsillectomy - Immunizations Immunizations up to date: Yes Hx Diphtheria, Pertussis, Tetanus Vaccination: Yes Review of Systems - Review of Systems Notes: REVIEW OF SYSTEMS: CONSTITUTIONAL: -fevers, -chills EENT: -eye pain, -difficulty swallowing, -nasal congestion CARDIOVASCULAR: -chest pain, -syncope. RESPIRATORY: -cough, -SOB GASTROINTESTINAL: -abdominal pain, -nausea, -vomiting, -diarrhea GENITOURINARY: -dysuria, -hematuria MUSCULOSKELETAL: +right hand pain, -back pain, -neck pain SKIN: -rash or skin lesions. HEMATOLOGIC: -easy bruising or bleeding. LYMPHATIC: -swollen, enlarged glands. NEUROLOGICAL: -altered mental status or loss of consciousness, +headache, - neurologic symptoms PSYCHIATRIC: +anger, +anxiety, -depression. ALL OTHER SYSTEMS REVIEWED AND NEGATIVE. Physical Exam - Vital signs Vitals: Temp Pulse Resp BP Pulse Ox 98.0 F 89 18 134/79 H 98 09/25/17 19:33 09/25/17 19:33 09/25/17 19:33 09/25/17 19:33 09/25/17 19:33 - Notes Notes: PHYSICAL EXAMINATION: GENERAL: Well-appearing, well-nourished and in no acute distress. HEAD: Forehead contusion and abrasions. EYES: Pupils equal round and reactive to light, extraocular movements intact, sclera anicteric, conjunctiva are normal. ENT: nares patent, oropharynx clear without exudates. Moist mucous membranes. NECK: Normal range of motion, supple without lymphadenopathy LUNGS: Breath sounds clear to auscultation bilaterally and equal. No wheezes rales or rhonchi. HEART: Regular rate and rhythm without murmurs ABDOMEN: Soft, nontender, normoactive bowel sounds. No guarding, no rebound. No masses appreciated. EXTREMITIES: Swelling of right 4th and 5th metacarpals. No open wounds. Brisk capillary refill and sensation intact. Normal range of motion, no pitting or edema. No cyanosis. NEUROLOGICAL: Cranial nerves grossly intact. Normal speech, normal gait. Normal sensory and motor exams. PSYCH: Cooperative. Denies SI or HI. SKIN: Warm, Dry, normal turgor, no rashes or lesions noted. Course - Re-evaluation Re-evalutation: Patient appears cooperative, but he is concerned about his anger issues. His head CT and right hand x-rays do not show any acute fractures or intracranial bleeds. Provide him with anti-inflammatories for contusions. Patient has never seen a mental health worker for his anger issues and agrees to stay overnight and speak to mental health in the morning. - Vital Signs Vital signs: Temp Pulse Resp BP Pulse Ox 98.0 F 89 18 134/79 H 98 09/25/17 19:33 09/25/17 19:33 09/25/17 19:33 09/25/17 19:33 09/25/17 19:33 Discharge - Discharge Clinical Impression: Difficulty controlling anger Contusion of head Qualifiers: Encounter type: initial encounter Contusion of head detail: scalp Qualified Code(s): S00.03XA - Contusion of scalp, initial encounter Contusion of right hand Qualifiers: Encounter type: initial encounter Qualified Code(s): S60.221A - Contusion of right hand, initial encounter Condition: Stable Disposition: PSYCH HOSP/UNIT
[2017-09-25 20:14] LABS: ABSOLUTE BASOPHILS # (AUTO) 0.1 10^3/uL (0.0-0.2); ABSOLUTE LYMPHOCYTES (AUTO) 1.4 10^3/uL (0.5-4.7); ABSOLUTE MONOCYTES (AUTO) 0.3 10^3/uL (0.1-1.4); ABSOLUTE NEUT (AUTO) 7.3 10^3/uL (1.7-8.2); BASOPHILS % (AUTO) 0.7 % (0-2); EOSINOPHILS % (AUTO) 0.5 % (0-6); HEMOGLOBIN 15.4 g/dL (13.5-17.0); MEAN CORPUSCULAR HEMOGLOBIN 29.2 pg (27.0-33.4); MEAN CORPUSCULAR HGB CONC 34.1 g/dL (32.0-36.0); MEAN CORPUSCULAR VOLUME 86 fl (80-97); MONOCYTES % (AUTO) 3.3 % (3-13); PLATELET COUNT 304 10^3/uL (150-450); RED BLOOD COUNT 5.26 10^6/uL (4.35-5.55); RED CELL DISTRIBUTION WIDTH 12.5 % (11.5-14.0); SEGMENTED NEUTROPHILS % (AUTO) 80.5 % (42-78); TOTAL CELLS COUNTED % (AUTO) 100 %; WHITE BLOOD COUNT 9.1 10^3/uL (4.0-10.5)
[2017-09-25 20:35] LABS: ALANINE AMINOTRANSFERASE 30 U/L (10-40); ALBUMIN 4.3 g/dL (3.7-5.6); ALKALINE PHOSPHATASE 69 U/L (65-260); ANION GAP 12 (5-19); ASPARTATE AMINO TRANSFERASE 28 U/L (10-45); BILIRUBIN,DIRECT 0.3 mg/dL (0.0-0.4); BILIRUBIN,TOTAL 0.4 mg/dL (0.2-1.3); BLOOD UREA NITROGEN 13 mg/dL (7-20); CALCIUM 9.7 mg/dL (8.4-10.2); CARBON DIOXIDE 24 mmol/L (22-30); CHLORIDE 105 mmol/L (98-107); GLUCOSE 102 mg/dL (75-110); POTASSIUM 4.3 mmol/L (3.6-5.0); SALICYLATE 1.2 mg/dL (2.0-20.0); SODIUM 140.6 mmol/L (137-145); TOTAL PROTEIN 6.8 g/dL (6.3-8.2)
--- NOTE | 2017-09-25 20:35 | RADIOLOGY REPORT (SQ) ---
EXAM DESCRIPTION: HAND RIGHT 3 VIEWS COMPLETED DATE/TIME: 09/25/2017 8:15 pm REASON FOR STUDY: hand injury COMPARISON: None. EXAM PARAMETERS: NUMBER OF VIEWS: Three views. TECHNIQUE: AP, lateral and oblique radiographic images acquired of the right hand. LIMITATIONS: None. FINDINGS: MINERALIZATION: Normal. BONES: No acute fracture or dislocation. No worrisome bone lesions. JOINTS: No effusions. SOFT TISSUES: No soft tissue swelling. No foreign body. OTHER: No other significant finding. IMPRESSION: NEGATIVE STUDY OF THE RIGHT HAND. NO RADIOGRAPHIC EVIDENCE OF ACUTE INJURY. TECHNICAL DOCUMENTATION: JOB ID: [id number] [employer]- All Rights Reserved
[2017-09-25 20:36] LABS: ACETAMINOPHEN < 10 ug/mL (10-30); ALCOHOL < 10 mg/dL (NONE DETECTED)
--- NOTE | 2017-09-25 20:36 | RADIOLOGY REPORT (SQ) ---
EXAM DESCRIPTION: CT HEAD WITHOUT COMPLETED DATE/TIME: 09/25/2017 8:20 pm REASON FOR STUDY: head injury, +LOC COMPARISON: 07/31/2014 TECHNIQUE: Axial images acquired through the brain without intravenous contrast. Images reviewed wi th bone, brain and subdural windows. Images stored on PACS. All CT scanners at this facility use dose modulation, iterative reconstruction, and/or weight based d osing when appropriate to reduce radiation dose to as low as reasonably achievable (ALARA). [facility]: Dose Right [facility]: CareDose [facility]: Dose Right [facility]: Teradose 4D [facility]: Smart VAZATA RADIATION DOSE: CT Rad equipment meets quality standard of care and radiation dose reduction techniq ues were employed. CTDIvol: 64.6 mGy. DLP: 1163 mGy-cm. mGy. LIMITATIONS: None. FINDINGS: VENTRICLES: Normal size and contour. CEREBRUM: No masses. No hemorrhage. No midline shift. No evidence for acute infarction. Normal gra y/white matter differentiation. No areas of low density in the white matter. CEREBELLUM: No masses. No hemorrhage. No alteration of density. No evidence for acute infarction. EXTRAAXIAL SPACES: No fluid collections. No masses. ORBITS AND GLOBE: No intra- or extraconal masses. Normal contour of globe without masses. CALVARIUM: No fracture. PARANASAL SINUSES: No fluid or mucosal thickening. SOFT TISSUES: No mass or hematoma. OTHER: No other significant finding. IMPRESSION: NORMAL BRAIN CT WITHOUT CONTRAST. EVIDENCE OF ACUTE STROKE: NO. COMMENT: Quality ID # [id number]: Final reports with documentation of one or more dose reduction techniques (e.g., Automated exposure control, adjustment of the mA and/or kV according to patient size, use of iterative reconstruction technique) TECHNICAL DOCUMENTATION: JOB ID: [id number] [employer]- All Rights Reserved
[2017-09-25 20:59] LABS: AMORPHOUS SEDIMENT,URINE 2+ /HPF; APPEARANCE,URINE CLOUDY; BILIRUBIN,URINE NEGATIVE (NEGATIVE); COLOR,URINE YELLOW; GLUCOSE, URINE NEGATIVE (NEGATIVE); KETONES,URINE NEGATIVE (NEGATIVE); LEUKOCYTE ESTERASE,URINE NEGATIVE (NEGATIVE); NITRITE,URINE NEGATIVE (NEGATIVE); PROTEIN,URINE NEGATIVE (NEGATIVE); URINE SPECIFIC GRAVITY 1.016
[2017-09-25 21:01] LABS: URINE AMPHETAMINES SCREEN NEGATIVE; URINE BARBITURATES SCREEN NEGATIVE; URINE BENZODIAZEPINES SCREEN UNCONFIRMED POSITIVE; URINE COCAINE SCREEN NEGATIVE; URINE MARIJUANA (THC) SCREEN NEGATIVE; URINE METHADONE SCREEN NEGATIVE; URINE PHENCYCLIDINE SCREEN NEGATIVE
[2017-09-25] MEDS ORDERED: IBUPROFEN 600 MG TABLET PO PRN (21:22)
--- NOTE | 2017-09-26 02:59 | ER Document Report ---
Doctor's Note Notes: 09/26/17 02:59 Sleeping and in no acute distress however while sleeping his heart rate drops into the 40s, when he wakes up it goes up into the 80s. He is not hypotensive and is not dizzy, no altered mental status. EKG was performed and shows sinus bradycardia at a rate of 52, normal axis, normal intervals, no ST segment elevations or depressions, no T-wave inversions. EKG does have significant artifact, disagree with interpretation of pacemaker spikes or atrial fibrillation. Patient was slated to be taken off the monitor and moved to pot for however this time he will be observed for little while longer given the bradycardia.
--- NOTE | 2017-09-26 09:23 | ER Document Report ---
Doctor's Note Notes: 09/26/17 09:22 This is a 21-year-old man who presented to the emergency room with self injury due to escalating mood disorder. The patient was medically cleared and is currently waiting for psychiatric evaluation. His vital signs have been stable. His labs have been stable. I reviewed his CT and x-rays which have been negative. I reviewed the notes. Patient did have some asymptomatic sinus bradycardia during sleeping which is felt to be a normal variant. On physical exam this morning, the patient is alert and oriented 3. His physical exam is unremarkable. He has some mild tenderness over the fourth and fifth MCP joints with some bruising to the area. There is no significant deformity. He has been seen by the counselor and the plan will be for discharge home today. He will be given some referrals. 09/26/17 09:39
[2017-09-26] MEDS ORDERED: OLANZAPINE 5 MG TABLET ONE (16:56)
--- NOTE | 2017-09-26 17:28 | EKG REPORT ---
SEVERITY:- OTHERWISE NORMAL ECG - SINUS RHYTHM VENTRICULAR PREMATURE COMPLEX ST ELEV, PROBABLE NORMAL EARLY REPOL PATTERN : Confirmed by: Cindy Marks 26-Sep-2017 12:20:29
--- NOTE | 2017-09-26 17:28 | EKG REPORT ---
SEVERITY:- ABNORMAL ECG - SINUS RHYTHM : Confirmed by: Cindy Marks 26-Sep-2017 12:20:07
--- NOTE | 2017-09-27 08:53 | ER Document Report ---
Doctor's Note Notes: 09/27/17 14:13 After performing a Medical Screening Examination, I estimate there is LOW risk for any life threatening mental health issues. At this time the patient looks extremely well and has not attempted severe self harm. I have reevaluated this patient multiple times and no significant life threatening changes are noted. The patient and I have discussed the diagnosis and risks, and we agree with discharging home with close follow-up with the understanding that symptoms and presentations can change. We also discussed returning to the Emergency Department immediately if new or worsening symptoms occur. We have discussed the symptoms which are most concerning (hallucinations, thoughts or actions of self harm or harm to others) that necessitate immediate return.
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
[2017-09-27 11:02] VITALS: BP 142/79
--- NOTE | 2017-09-27 11:17 | PSYCHOLOGICAL NOTE ---
Psych Note - Psych Note Psych Note: Reason for Consult: Anger/Anxiety Consents given: Yanni Andrade, mother [phone] Patient is a 21 year old male who was brought to the emergency Department for anger outbursts and engaging in self-injurious behaviors (banging head on the wall, punching the wall). Patient was much more engaged today. Patient reported feeling relaxed and wanted to go home. He stated, "I wasn't doing what I was supposed to be doing. I was scaring everyone." Patient stated being in the hospital was his "warning to make changes." The patient was able to identify his relationship with his girlfriend, taking Xanax and not talking to his mother when he was upset as triggers for violent behaviors. Patient stated, going forward, he would talk to his mother or go outside and build things when he began getting upset and frustrated. Patient agreed to continue of his current medications and follow up with his established provider. Patient stated that being in the hospital made him not want to take anything he wasn't prescribed "ever again." Patient stated he wanted to end his current relationship because it wasn't good for him and he was going to do this with the support of his mother. Patient was alert and oriented to person, place, time and circumstance. Mood was euthymic with congruent affect. Patient denied suicidal/homicidal ideation, intent or plan. He did not appear to be responding to internal stimuli as evidenced by appropriate eye contact, maintaining conversation and staying on topic. No delusions or psychosis noted. Thought processes were organized and linear. Conversational speech was slow for rate, tone and prosody. Intellectual abilities were estimated in the low average range. Insight, judgment and impulse control were fair as evidenced by the patient being honest about his anger, how he typically reacts when angry, what his triggers are and how others in his life impact his decisions. Collateral contact was made with the mother prior to discharge. The mother agreed the patient could come home and she would provide transportation. The mother reported she was happy that the patient had opened up and been honest. She reported that made her feel like he was able to see how the behaviors affected the people in his life. The mother also stated she would assist the patient in his interactions with the girlfriend. 1. 296.80 (F31.9) Unspecified Bipolar and Related Disorder Impression/Plan: Recommend rescind IVC. Patient is psychiatrically clear. He no longer meets [place] G.S 122C IVC criteria. Patient is no longer considered a danger to himself or others at this time. Patient denied suicidal/homicidal ideation, intent or plan. Patient is able to openly discuss past behaviors and what triggers those behaviors. He was able to identify more appropriate coping skills for when he becomes angry. Patient agreed to continue medication regimen as recommended and follow up with his established provider, [facility]. Consulted with Dr. Green regarding the care and management of this patient. ED physician in agreement with recommendation and disposition.
== END 2017-09-27 11:02 | disposition home or self-care (01) ==
LOC: ER 19:19
DX: S00.03XA Contusion of scalp, initial encounter (principal); S60.221A Contusion of right hand, initial encounter; R45.4 Irritability and anger; F31.9 Bipolar disorder, unspecified; R51 Headache; W22.01XA Walked into wall, initial encounter
CPT/HCPCS: 93005; 99285; 36415; 80307 ×4; 85025; 80053; 81001; 73130; 70450; 93010; J3490

== ENCOUNTER 2017-10-31 12:41 | Emergency (ER) | payer MEDICAID ==
[2017-10-31] MEDS ORDERED: CYCLOBENZAPRINE HCL 10 MG TABLET PO ONE (14:30)
[2017-10-31] MEDS ORDERED: HYDROCODONE/ACETAMINOPHEN 5-325 MG TABLET PO ONE (14:30)
[2017-10-31] MEDS ORDERED: IBUPROFEN 600 MG TABLET PO ONE (14:31)
--- NOTE | 2017-10-31 14:33 | ER Document Report ---
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 He states that it starts in the midline and radiates all across the low back. He denies any numbness or tingling, radiation of the pain, loss of bladder or bowel function. TRAVEL OUTSIDE OF THE [place] IN LAST 30 DAYS: No - Related Data Allergies/Adverse Reactions: No Known Allergies Allergy (Verified 08/27/17 17:41) Past Medical History - General Information source: Patient - Social History Smoking Status: Never Smoker Chew tobacco use (# tins/day): No Drug Abuse: None Family History: DM, Hypertension Patient has suicidal ideation: No Patient has homicidal ideation: No Pulmonary Medical History: Reports: Hx Bronchitis Renal/ Medical History: Denies: Hx Peritoneal Dialysis Musculoskeltal Medical History: Reports Hx Arthritis, Reports Hx Musculoskeletal Deformity - Degenerative disc disease with sciatica, Reports Hx Musculoskeletal Trauma Psychiatric Medical History: Reports: Hx Attention Deficit Hyperactivity Disorder Traumatic Medical History: Denies: Hx Fractures Past Surgical History: Reports: Hx Adenoidectomy, Hx Oral Surgery, Hx Tonsillectomy - Immunizations Immunizations up to date: Yes Hx Diphtheria, Pertussis, Tetanus Vaccination: Yes Review of Systems - Review of Systems Constitutional: No symptoms reported EENT: No symptoms reported Cardiovascular: No symptoms reported Respiratory: No symptoms reported Gastrointestinal: No symptoms reported Genitourinary: No symptoms reported Male Genitourinary: No symptoms reported Musculoskeletal: See HPI Skin: No symptoms reported Hematologic/Lymphatic: No symptoms reported Neurological/Psychological: No symptoms reported Physical Exam - Vital signs Vitals: Temp Pulse Resp BP Pulse Ox 98.0 F 69 16 124/69 100 10/31/17 12:49 10/31/17 12:49 10/31/17 12:49 10/31/17 12:49 10/31/17 12:49 - Notes Notes: PHYSICAL EXAMINATION: GENERAL: Well-appearing and in no acute distress. HEAD: Atraumatic, normocephalic. EYES: Pupils equal round and reactive to light, extraocular movements intact, sclera anicteric, conjunctiva are normal. ENT: ear canals without erythema or foreign body, TMs pearly emanuel with good bony landmarks, nares patent, oropharynx clear without exudates. Moist mucous membranes. NECK: Normal range of motion, supple without lymphadenopathy LUNGS: CTAB and equal. No wheezes rales or rhonchi. HEART: Regular rate and rhythm without murmurs ABDOMEN: Soft, no tenderness. No guarding, no rebound BACK: Thoracic and lumbar vertebral tenderness, limited range of motion secondary to pain GI/: no CVA tenderness EXTREMITIES: Normal range of motion, no pitting edema. No cyanosis. NEUROLOGICAL: Cranial nerves grossly intact. Normal sensory/motor exams. PSYCH: Normal mood, normal affect. SKIN: Warm, Dry, normal turgor, no rashes or lesions noted Course - Re-evaluation Re-evalutation: 10/31/17 15:34 Thoracic x-ray reports S-shaped spine, possibly due to scoliosis underlying or muscle spasm. Otherwise unremarkable. Patient will be treated with muscle relaxers and anti-inflammatories for pain. - Vital Signs Vital signs: Temp Pulse Resp BP Pulse Ox 98.0 F 69 16 124/69 100 10/31/17 12:49 10/31/17 12:49 10/31/17 12:49 10/31/17 12:49 10/31/17 12:49 Discharge - Discharge Clinical Impression: Spasm of back muscles Condition: Stable Disposition: HOME, SELF-CARE Additional Instructions: Return immediately for any new or worsening symptoms. Follow up with primary care provider, call tomorrow to make followup appointment. Prescriptions: Cyclobenzaprine HCl [Flexeril 10 mg Tablet] 10 mg PO TIDP PRN #15 tab PRN Reason: Ibuprofen [Motrin 600 Mg Tablet] 600 mg PO TID #15 tablet Forms: Return to Work
--- NOTE | 2017-10-31 15:18 | RADIOLOGY REPORT (SQ) ---
EXAM DESCRIPTION: L SPINE WHOLE COMPLETED DATE/TIME: 10/31/2017 2:59 pm REASON FOR STUDY: back pain, midline COMPARISON: 05/31/2017. NUMBER OF VIEWS: Five views including obliques. TECHNIQUE: AP, lateral, oblique, and sacral radiographic images acquired of the lumbar spine. LIMITATIONS: None. FINDINGS: MINERALIZATION: Normal. SEGMENTATION: Normal. No transitional anatomy. ALIGNMENT: Normal. VERTEBRAE: Maintained height. No fracture or worrisome bone lesion. DISCS: Preserved height. No significant osteophytes or end plate irregularity. POSTERIOR ELEMENTS: Pedicles and facets are intact. No pars defect or posterior arch defects. HARDWARE: None in the spine. PARASPINAL SOFT TISSUES: Normal. PELVIS: Intact as visualized. No fractures or worrisome bone lesions. SI joints intact. OTHER: No other significant finding. IMPRESSION: NORMAL 5 VIEW LUMBAR SPINE. TECHNICAL DOCUMENTATION: JOB ID: [id number] [email or web address]- All Rights Reserved
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
[2017-10-31 15:52] VITALS: BP 128/73
== END 2017-10-31 15:45 | disposition home or self-care (01) ==
LOC: ER 12:41
DX: M62.830 Muscle spasm of back (principal); M54.5 Low back pain
CPT/HCPCS: 99283; 72110; 72070; J3490 ×2

== ENCOUNTER 2018-01-29 20:25 | Emergency (ER) | payer MEDICAID ==
--- NOTE | 2018-01-29 21:16 | ER Document Report ---
HPI - HPI Pain Level: 4 Notes: Patient is a 22-year-old male who presents to the ED complaining of left lateral great toenail pain and redness surrounding it 1 week. Patient states that it hurts to walk and believes that his toenails ingrown. He has not noticed any abscess or purulent discharge. He has not noticed any red streaks. Denies any drug allergies. No other concerns or complaints at this time. Pain does not radiate. Denies any headache, fever, URI, sore throat, chest pain , palpitations, syncope, cough, shortness of breath, wheeze, dyspnea, abdominal pain, nausea/vomiting/diarrhea, urinary retention, dysuria, hematuria, numbness/ tingling, muscle paralysis/weakness, or rash. - ROS Systems Reviewed and Negative: Yes All other systems reviewed and negative - CONSTITUTIONAL Constitutional: DENIES: Fever - REPRODUCTIVE Reproductive: DENIES: : Past Medical History - Social History Smoking Status: Current Every Day Smoker Family History: DM, Hypertension Patient has suicidal ideation: No Patient has homicidal ideation: No Pulmonary Medical History: Reports: Hx Bronchitis Renal/ Medical History: Denies: Hx Peritoneal Dialysis Musculoskeltal Medical History: Reports Hx Arthritis, Reports Hx Musculoskeletal Deformity - Degenerative disc disease with sciatica, Reports Hx Musculoskeletal Trauma Psychiatric Medical History: Reports: Hx Attention Deficit Hyperactivity Disorder Traumatic Medical History: Denies: Hx Fractures Past Surgical History: Reports: Hx Adenoidectomy, Hx Oral Surgery, Hx Tonsillectomy - Immunizations Immunizations up to date: Yes Hx Diphtheria, Pertussis, Tetanus Vaccination: Yes Vertical Provider Document - CONSTITUTIONAL Agree With Documented VS: Yes Notes: PHYSICAL EXAMINATION: GENERAL: Well-appearing, well-nourished and in no acute distress. LUNGS: Breath sounds clear to auscultation bilaterally and equal. No wheezes rales or rhonchi. HEART: Regular rate and rhythm without murmurs, rubs, gallops. Musculoskeletal: Left foot/toes: FROM to passive/active. Strength 5+/5. N/V intact distal. Extremities: No cyanosis, clubbing, or edema b/l. Peripheral pulses 2+. Capillary refill less than 3 seconds. NEUROLOGICAL: Normal speech, normal gait. PSYCH: Normal mood, normal affect. SKIN: ingrown toenail left lateral of great toe. + erythemic inflamed tissue w/ o abscess, streaks, or discharge. + tenderness. - INFECTION CONTROL TRAVEL OUTSIDE OF THE [place] IN LAST 30 DAYS: No Course - Re-evaluation Re-evalutation: 01/29/18 21:13 Patient is an afebrile, well-hydrated, 22-year-old male who presents to the ED with an ingrown toenail and mild cellulitis to the left lateral nail of the great toe. Vitals are acceptable. PE is otherwise unremarkable for any neurovascular compromise, obvious tendon/ligament rupture, obvious fracture/ dislocation, septic joint. Partial nail excision was performed successfully without any complications. Patient tolerated procedure well. Wound was thoroughly irrigated and cleansed. Wound dressing was placed and wound instructions reviewed. I will send him home with a prescription for Keflex and Bactrim. Conservative measures otherwise for symptoms. Recheck with your PCM in 3-5 days. Consider consult with podiatry. Return to the ED with any worsening/concerning symptoms otherwise as reviewed discharge. Patient is in agreement. - Vital Signs Vital signs: Temp Pulse Resp BP Pulse Ox 98.4 F 100 16 138/84 H 98 01/29/18 20:31 01/29/18 20:31 01/29/18 20:31 01/29/18 20:31 01/29/18 20:31 Procedures - Additional Procedures partial nail excision Time performed: 19:05 - pt tolerated proc well, no complications Additional Procedures: Other - digital block performed with 1% lido w/o epi. partial nail excised successfully wound dressing placed, cautery performed Discharge - Discharge Clinical Impression: Ingrown left big toenail Condition: Stable Disposition: HOME, SELF-CARE Additional Instructions: Keep the skin clean Wash with soap and water Tylenol/ibuprofen if needed Triple antibiotic ointment daily Take medication as directed Epson salt soaks Monitor for any worsening symptoms Recheck with your PCM in 3-5 days Consider consult with podiatry for ongoing/worsening symptoms Return to the ED with any worsening symptoms and/or development of fever, headache, chest pain, palpitations, syncope, shortness of breath, trouble breathing, abdominal pain, n/v/d, abscess, purulent discharge, red streaks, worsening swelling, or other worsening symptoms that are concerning to you. Prescriptions: Cephalexin Monohydrate [Keflex 500 mg Capsule] 500 mg PO BID #20 capsule Sulfamethoxazole/Trimethoprim [Bactrim Ds Tablet] 1 each PO BID #20 tablet Forms: Elevated Blood Pressure, Smoking Cessation Education Referrals: EVELIA ENRIQUEZ DPM [ACTIVE STAFF] - Follow up as needed
[2018-01-29 21:27] VITALS: BP 142/76
== END 2018-01-29 21:31 | disposition home or self-care (01) ==
LOC: ER 20:25
DX: L60.0 Ingrowing nail (principal); L03.032 Cellulitis of left toe; F17.200 Nicotine dependence, unspecified, uncomplicated
CPT/HCPCS: 99283

== ENCOUNTER 2018-02-05 17:14 | Emergency (ER) | payer MEDICAID ==
--- NOTE | 2018-02-05 17:49 | ER Document Report ---
ED General - General Chief Complaint: Foot Pain Stated Complaint: TOE PAIN Time Seen by Provider: 02/05/18 17:29 Mode of Arrival: Ambulatory Information source: Patient, Parent TRAVEL OUTSIDE OF THE [place] IN LAST 30 DAYS: No - HPI Notes: Patient is a 22-year-old male 1 week ago had partial resection of the left great toenail lateral aspect for ingrown toenail and has been on Keflex and Bactrim since that time, presents with continued pain to the toe but now on the opposite side more proximal along the MCP joint. The patient states this is close to the location where they did the digital block on the toe. The patient denies any fever chills or numbness or paresthesia or other injury. - Related Data Allergies/Adverse Reactions: No Known Allergies Allergy (Verified 02/05/18 17:14) Past Medical History - General Information source: Patient, Relative - Social History Smoking Status: Never Smoker Frequency of alcohol use: None Drug Abuse: None Lives with: Family Family History: DM, Hypertension Patient has suicidal ideation: No Patient has homicidal ideation: No Pulmonary Medical History: Reports: Hx Bronchitis Renal/ Medical History: Denies: Hx Peritoneal Dialysis Musculoskeltal Medical History: Reports Hx Arthritis, Reports Hx Musculoskeletal Deformity - Degenerative disc disease with sciatica, Reports Hx Musculoskeletal Trauma Psychiatric Medical History: Reports: Hx Attention Deficit Hyperactivity Disorder Traumatic Medical History: Denies: Hx Fractures Past Surgical History: Reports: Hx Adenoidectomy, Hx Oral Surgery, Hx Tonsillectomy - Immunizations Immunizations up to date: Yes Hx Diphtheria, Pertussis, Tetanus Vaccination: Yes Review of Systems - Review of Systems Notes: REVIEW OF SYSTEMS: CONSTITUTIONAL : Denies fever, chills, or sweats. CARDIOVASCULAR: Denies chest pain. Denies ankle edema. MUSCULOSKELETAL: Reports swelling to the left great toe with mild pain.. SKIN: Denies rash. HEMATOLOGIC : Denies easy bruising or bleeding. LYMPHATIC: Denies swollen, enlarged glands. NEUROLOGICAL: Denies headache. Denies weakness or paralysis or loss of use of either side. Denies problems with gait or speech. Denies sensory loss, numbness, or tingling. Denies seizures. ALL OTHER SYSTEMS REVIEWED AND NEGATIVE. Dictation was performed using [employer] voice recognition software Physical Exam - Vital signs Vitals: Temp Pulse Resp BP Pulse Ox 97.4 F 73 16 141/60 H 100 02/05/18 17:17 02/05/18 17:17 02/05/18 17:17 02/05/18 17:17 02/05/18 17:17 - Notes Notes: Examination of the left lower extremity shows nonfocal knee and ankle and foot with the exception of the left great toe where the patient has what appears to be healing area of ingrown toenail resection on the lateral aspect distally, but he describes pain along the medial aspect of the first MTP joint. There is no erythema to this region. Distally there is good capillary refill. He does have a good range of motion but pain with range of motion that he localizes close to where the digital block may have been performed medially. There is no bony deformity or crepitance. No proximal erythema or adenopathy. Tendon function appears intact. Course - Re-evaluation Re-evalutation: 02/05/18 18:52 X-ray was negative for acute fracture or injury. No evidence for osteomyelitis. There was evidence from the previous silver nitrate which had been performed during the procedure 1 week ago, but no obvious foreign body. Antibiotic ointment was applied to the wound. Patient was reassured. If there is any transient neurologic injury related to a mere digital block, hopefully this should improve. - Vital Signs Vital signs: Temp Pulse Resp BP Pulse Ox 97.4 F 73 16 141/60 H 100 02/05/18 17:17 02/05/18 17:17 02/05/18 17:17 02/05/18 17:17 02/05/18 17:17 Discharge - Discharge Clinical Impression: Ingrown toenail without infection Condition: Stable Disposition: HOME, SELF-CARE Instructions: Dressing Instructions for Open Wounds ([facility]) Additional Instructions: Apply antibiotic ointment to the wound and keep clean and dry. Return to the emergency department case of severe pain, fever, redness or swelling. Prescriptions: Ibuprofen 800 mg PO Q8HP PRN #60 tablet PRN Reason: Cephalexin Monohydrate [Keflex 500 mg Capsule] 500 mg PO Q6H 8 Days capsule Referrals: ANDREEA PRICE DPM [ACTIVE STAFF] - Follow up as needed SUBHA PATEL DPM [NO LOCAL MD] - Follow up as needed
--- NOTE | 2018-02-05 18:26 | RADIOLOGY REPORT (SQ) ---
EXAM DESCRIPTION: FOOT LEFT COMPLETE COMPLETED DATE/TIME: 02/05/2018 6:09 pm REASON FOR STUDY: L great toe and 1st MTP pain COMPARISON: 02/26/2014 NUMBER OF VIEWS: Three views. TECHNIQUE: AP, lateral and oblique radiographic images acquired of the left foot. LIMITATIONS: None. FINDINGS: MINERALIZATION: Normal. BONES: No acute fracture or dislocation. No worrisome bone lesions. JOINTS: No effusions. SOFT TISSUES: No soft tissue swelling. No foreign body. OTHER: Incidental note is made of great toe onychomycosis. IMPRESSION: NEGATIVE STUDY OF THE LEFT FOOT. NO RADIOGRAPHIC EVIDENCE OF ACUTE INJURY. TECHNICAL DOCUMENTATION: JOB ID: [id number] [employer]- All Rights Reserved Reading location - IP/workstation name: [email or web address]
[2018-02-05 19:34] VITALS: BP 143/47
== END 2018-02-05 19:25 | disposition home or self-care (01) ==
LOC: ER 17:14
DX: Z98.890 Other specified postprocedural states (principal); M25.572 Pain in left ankle and joints of left foot; L60.0 Ingrowing nail
CPT/HCPCS: 99283

== ENCOUNTER 2018-02-17 11:40 | Emergency (ER) | payer OTHER, MEDICAID ==
[2018-02-17 11:49] VITALS: BP 128/84
[2018-02-17] MEDS ORDERED: RINGERS SOLUTION,LACTATED 500 ML IV PRN (11:55)
[2018-02-17] MEDS ORDERED: RINGERS SOLUTION,LACTATED 1,000 ML IV ONE (11:55)
[2018-02-17] MEDS ORDERED: ONDANSETRON 4 MG TAB.RAPDIS PO ONE (11:58)
--- NOTE | 2018-02-17 11:59 | ER Document Report ---
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 Woke up this morning feeling weak and tired, nauseous and dehydrated. Therefore mother brought him to the ED. Denies any constitutional symptoms. Onset: Gradual Duration: 2-3 days Severity: Moderate Quality: Not applicable Context: Working out in the sun Exacerbating factor and relieving factors: Not applicable REVIEW OF SYSTEMS: CONSTITUTIONAL : Denies fever, chills, or sweats. Denies recent illness. EENT: Denies eye, ear, throat, or mouth pain or symptoms. Denies nasal or sinus congestion or discharge. Denies throat, tongue, or mouth swelling or difficulty swallowing. CARDIOVASCULAR: Denies chest pain. Denies palpitations or racing or irregular heart beat. Denies ankle edema. RESPIRATORY: Denies cough, cold, or chest congestion. Denies shortness of breath, difficulty breathing, or wheezing. GASTROINTESTINAL: Denies distention. Denies nausea, vomiting, or diarrhea. Denies blood in vomitus, stools, or per rectum. Denies black, tarry stools. Denies constipation. GENITOURINARY: Denies difficulty urinating, painful urination, burning, frequency, blood in urine, or discharge. FEMALE GENITOURINARY: Denies vaginal bleeding, heavy or abnormal periods, irregular periods. Denies vaginal discharge or odor. MUSCULOSKELETAL: Denies back or neck pain or stiffness. Denies joint pain or swelling. SKIN: Denies rash, lesions or sores. HEMATOLOGIC : Denies easy bruising or bleeding. LYMPHATIC: Denies swollen, enlarged glands. NEUROLOGICAL: Denies confusion or altered mental status. Denies passing out or loss of consciousness. Denies dizziness or lightheadedness. Denies headache. Denies weakness or paralysis or loss of use of either side. Denies problems with gait or speech. Denies sensory loss, numbness, or tingling. Denies seizures. PSYCHIATRIC: Denies anxiety or stress. Denies depression, suicidal ideation, or homicidal ideation. ALL OTHER SYSTEMS REVIEWED AND NEGATIVE. PHYSICAL EXAMINATION: GENERAL: Well-appearing, well-nourished and in mild acute distress. HEAD: Atraumatic, normocephalic. EYES: Pupils equal round and reactive to light, extraocular movements intact, conjunctiva are normal. ENT: Nares patent, oropharynx clear without exudates. Moist mucous membranes. NECK: Normal range of motion, supple without lymphadenopathy LUNGS: Breath sounds clear to auscultation bilaterally and equal. No wheezes rales or rhonchi. HEART: Regular rate and rhythm without murmurs ABDOMEN: Soft, nontender, nondistended abdomen. No guarding, no rebound. No masses appreciated. Examination of genitals-deferred Musculoskeletal: Normal range of motion, no pitting or edema. No cyanosis. NEUROLOGICAL: Cranial nerves grossly intact. Normal speech, normal gait. Normal sensory, motor exams PSYCH: Normal mood, normal affect. SKIN: Facial skin is erythematous and warm to touch no blisters. Skin turgor is poor with dehydration. Dictation was performed using [employer] voice recognition software TRAVEL OUTSIDE OF THE [place] IN LAST 30 DAYS: No - Related Data Allergies/Adverse Reactions: No Known Allergies Allergy (Verified 02/17/18 11:44) Past Medical History - Social History Smoking Status: Current Every Day Smoker Cigarette use (# per day): No Chew tobacco use (# tins/day): No Smoking Education Provided: No Frequency of alcohol use: Rare Drug Abuse: None Family History: Reviewed & Not Pertinent, DM, Hypertension Pulmonary Medical History: Reports: Hx Bronchitis Renal/ Medical History: Denies: Hx Peritoneal Dialysis Musculoskeltal Medical History: Reports Hx Arthritis, Reports Hx Musculoskeletal Deformity - Degenerative disc disease with sciatica, Reports Hx Musculoskeletal Trauma Psychiatric Medical History: Reports: Hx Attention Deficit Hyperactivity Disorder Traumatic Medical History: Denies: Hx Fractures Past Surgical History: Reports: Hx Adenoidectomy, Hx Oral Surgery, Hx Tonsillectomy - Immunizations Immunizations up to date: Yes Hx Diphtheria, Pertussis, Tetanus Vaccination: Yes Review of Systems - Review of Systems Notes: Dictated Physical Exam - Vital signs Vitals: Temp Pulse Resp BP Pulse Ox 97.5 F 82 22 H 128/84 H 98 02/17/18 11:48 02/17/18 11:48 02/17/18 11:48 02/17/18 11:48 02/17/18 11:48 - Notes Notes: Dictated Course - Re-evaluation Re-evalutation: 02/17/18 13:54 Given IV fluids with clinical improvement discharge home - Vital Signs Vital signs: Temp Pulse Resp BP Pulse Ox 97.5 F 82 16 128/84 H 98 02/17/18 11:48 02/17/18 11:48 02/17/18 11:49 02/17/18 11:48 02/17/18 11:48 - Laboratory Result Diagrams: 02/17/18 12:23 02/17/18 12:41 Laboratory results interpreted by me: 02/17/18 02/17/18 12:23 12:41 WBC 13.6 H RBC 6.40 H Hgb 18.8 H Hct 55.5 H Seg Neutrophils % 85.6 H Lymphocytes % 9.6 L Absolute Neutrophils 11.6 H Direct Bilirubin 0.5 H Total Protein 8.4 H Albumin 5.1 H Discharge - Discharge Clinical Impression: Dehydration, Nausea Heat exposure Qualifiers: Encounter type: initial encounter Qualified Code(s): T67.9XXA - Effect of heat and light, unspecified, initial encounter Condition: Fair Disposition: HOME, SELF-CARE Instructions: Dehydration ([facility]), Heat Exhaustion ([facility]) Prescriptions: Ondansetron [Zofran Odt 4 mg Tablet] 1 - 2 tab PO Q4H PRN #15 tab.rapdis PRN Reason: For Nausea/Vomiting
[2018-02-17 12:33] LABS: ABSOLUTE EOSINOPHILS # (AUTO) 0.2 10^3/uL (0.0-0.6); ABSOLUTE LYMPHOCYTES (AUTO) 1.3 10^3/uL (0.5-4.7); ABSOLUTE MONOCYTES (AUTO) 0.4 10^3/uL (0.1-1.4); ABSOLUTE NEUT (AUTO) 11.6 10^3/uL (1.7-8.2); BASOPHILS % (AUTO) 0.3 % (0-2); EOSINOPHILS % (AUTO) 1.3 % (0-6); HEMATOCRIT 55.5 % (37.9-51.0); HEMOGLOBIN 18.8 g/dL (13.5-17.0); LYMPHOCYTES % (AUTO) 9.6 % (13-45); MEAN CORPUSCULAR HEMOGLOBIN 29.4 pg (27.0-33.4); MEAN CORPUSCULAR HGB CONC 33.9 g/dL (32.0-36.0); MEAN CORPUSCULAR VOLUME 87 fl (80-97); MONOCYTES % (AUTO) 3.2 % (3-13); PLATELET COUNT 364 10^3/uL (150-450); RED CELL DISTRIBUTION WIDTH 12.9 % (11.5-14.0); SEGMENTED NEUTROPHILS % (AUTO) 85.6 % (42-78); TOTAL CELLS COUNTED % (AUTO) 100 %; WHITE BLOOD COUNT 13.6 10^3/uL (4.0-10.5)
[2018-02-17 13:21] LABS: ALANINE AMINOTRANSFERASE 37 U/L (21-72); ALBUMIN 5.1 g/dL (3.5-5.0); ALKALINE PHOSPHATASE 78 U/L (38-126); ANION GAP 17 (5-19); ASPARTATE AMINO TRANSFERASE 35 U/L (17-59); BILIRUBIN,DIRECT 0.5 mg/dL (0.0-0.4); BILIRUBIN,TOTAL 1.1 mg/dL (0.2-1.3); BLOOD UREA NITROGEN 15 mg/dL (7-20); CALCIUM 10.1 mg/dL (8.4-10.2); CARBON DIOXIDE 28 mmol/L (22-30); CHLORIDE 100 mmol/L (98-107); GLUCOSE 82 mg/dL (75-110); POTASSIUM 4.3 mmol/L (3.6-5.0); SODIUM 144.5 mmol/L (137-145); TOTAL PROTEIN 8.4 g/dL (6.3-8.2)
== END 2018-02-17 14:07 | disposition home or self-care (01) ==
LOC: ER 11:40
DX: T67.8XXA Other effects of heat and light, initial encounter (principal); E86.0 Dehydration; R11.0 Nausea; R53.1 Weakness; R53.83 Other fatigue; X30.XXXA Exposure to excessive natural heat, initial encounter; Y93.H2 Activity, gardening and landscaping; Y99.0 Civilian activity done for income or pay; F17.200 Nicotine dependence, unspecified, uncomplicated
CPT/HCPCS: 99284; 96360; 36415; 85025; 80053; S0119; J7120

== ENCOUNTER 2018-04-11 16:42 | Emergency (ER) | payer MEDICAID ==
[2018-04-11 17:29] VITALS: BP 114/57
[2018-04-11] MEDS ORDERED: CEFTRIAXONE INJ 250 MG VIAL IM ONE (18:26)
[2018-04-11] MEDS ORDERED: LIDOCAINE 1% INJ-PF (10 MG/ML) 30 ML SDV INJ ONE (18:26)
[2018-04-11] MEDS ORDERED: AZITHROMYCIN 250 MG TABLET PO ONE (18:26)
--- NOTE | 2018-04-11 18:26 | ER Document Report ---
HPI - HPI Pain Level: 2 Notes: Patient is a 22-year-old male with no significant past medical history who presents to the ED complaining of urinary burning 2-3 days. Patient states that he was sexually active with someone who mentioned that he may want to get tested as they may have had "something." Patient states that that contact was 2 -3 weeks ago. He is eating and drinking without difficulties. He is having normal bowel. Denies any drug allergies. No other concerns or complaints. He has not had any other lesions or ulcerations. Denies any headache, fever, URI, sore throat, chest pain, palpitations, syncope, cough, shortness of breath, wheeze, dyspnea, abdominal pain, nausea/vomiting/diarrhea, or rash. - ROS Systems Reviewed and Negative: Yes All other systems reviewed and negative - CONSTITUTIONAL Constitutional: DENIES: Fever, Chills - EENT EENT: DENIES: Sore Throat, Ear Pain, Eye problems - NEURO Neurology: DENIES: Headache, Weakness, Vision blurred, Dizzinesss / Vertigo - CARDIOVASCULAR Cardiovascular: DENIES: Chest pain - RESPIRATORY Respiratory: DENIES: Trouble Breathing, Coughing - GASTROINTESTINAL Gastrointestinal: DENIES: Abdominal Pain, Black / Bloody Stools - URINARY Urinary: REPORTS: Dysuria - penile pain. DENIES: Urgency, Frequency - REPRODUCTIVE Reproductive: DENIES: : - MUSCULOSKELETAL Musculoskeletal: DENIES: Extremity pain Past Medical History - Social History Smoking Status: Unknown if Ever Smoked Family History: Reviewed & Not Pertinent, DM, Hypertension Patient has suicidal ideation: No Patient has homicidal ideation: No Pulmonary Medical History: Reports: Hx Bronchitis Renal/ Medical History: Denies: Hx Peritoneal Dialysis Musculoskeletal Medical History: Reports Hx Arthritis, Reports Hx Musculoskeletal Deformity - Degenerative disc disease with sciatica, Reports Hx Musculoskeletal Trauma Psychiatric Medical History: Reports: Hx Attention Deficit Hyperactivity Disorder Traumatic Medical History: Denies: Hx Fractures Past Surgical History: Reports: Hx Adenoidectomy, Hx Oral Surgery, Hx Tonsillectomy - Immunizations Immunizations up to date: Yes Hx Diphtheria, Pertussis, Tetanus Vaccination: Yes Vertical Provider Document - CONSTITUTIONAL Agree With Documented VS: Yes Notes: PHYSICAL EXAMINATION: GENERAL: Well-appearing, well-nourished and in no acute distress. LUNGS: Breath sounds clear to auscultation bilaterally and equal. No wheezes rales or rhonchi. HEART: Regular rate and rhythm without murmurs, rubs, gallops. ABDOMEN: Soft, nontender, nondistended abdomen. No guarding, no rebound. No masses appreciated. Normal bowel sounds present. No CVA tenderness bilaterally. : No erythema, ulceration, lesion, swelling, or necrosis noted. No urethral discharge. Non-tender to palp of the penis/scrotum/testes. No obvious inguinal hernia or lymphadenopathy Musculoskeletal: FROM to passive/active. Strength 5+/5. Extremities: No cyanosis, clubbing, or edema b/l. Peripheral pulses 2+. Capillary refill less than 3 seconds. NEUROLOGICAL: Normal speech, normal gait. PSYCH: Normal mood, normal affect. SKIN: Warm, Dry, normal turgor, no rashes or lesions noted. - INFECTION CONTROL TRAVEL OUTSIDE OF THE [place] IN LAST 30 DAYS: No Course - Re-evaluation Re-evalutation: 04/11/18 18:59 Patient is an afebrile, well-hydrated, 22-year-old male who presents to the ED with dysuria and possible exposure to STD. Vitals are acceptable without any significant tachycardia, tachypnea, or hypoxia. PE is otherwise unremarkable. Urinalysis was unremarkable for any acute pathology. Chlamydia gonorrhea tests are pending. Patient was given Rocephin and Zithromax. No other labs or imaging warranted at this time based on H&P. Recommend conservative measures for symptoms. Recheck with health department this week. Return to the ED with any worsening/concerning symptoms otherwise as reviewed in discharge. Patient is in agreement. 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 - Vital Signs Vital signs: Temp Pulse Resp BP Pulse Ox 98.0 F 60 18 114/57 L 04/11/18 17:02 04/11/18 17:02 04/11/18 17:02 04/11/18 17:02 Discharge - Discharge Clinical Impression: Possible exposure to STD, Dysuria Condition: Stable Disposition: HOME, SELF-CARE Additional Instructions: Push fluids (i.e. water, cranberry juice) Proper hygenic technique Keep the skin clean Safe sexual practices with condoms everytime Tylenol/ibuprofen as needed Check in with the health department this week for further testing* Your chlamydia/Ghon test are pending and you will be notified if positive results; you may call in 1 day for the results as well Return immediately if symptoms worsen F/u with your PCM in 3-5 days for a recheck Return to the ED with any development of MONTENEGRO/fever, trouble with vision, eye redness, worsening pain, urethral discharge, urinary retention, blood in the urine, flank pain, abdominal pain, n/v, Chest Pain, shortness of breath, joint pains, trouble breathing, or any other worsening/concerning symptoms as needed otherwise. Referrals: SHERRIE WALDEN DPM [ACTIVE STAFF] - Follow up as needed [facility] [NO LOCAL MD] - Follow up in 3-5 days
[2018-04-11 18:57] LABS: APPEARANCE,URINE CLEAR; BILIRUBIN,URINE NEGATIVE (NEGATIVE); COLOR,URINE YELLOW; GLUCOSE, URINE NEGATIVE (NEGATIVE); KETONES,URINE NEGATIVE (NEGATIVE); LEUKOCYTE ESTERASE,URINE NEGATIVE (NEGATIVE); NITRITE,URINE NEGATIVE (NEGATIVE); PROTEIN,URINE NEGATIVE (NEGATIVE); URINE SPECIFIC GRAVITY 1.014; UROBILINOGEN,URINE NEGATIVE mg/dL (<2.0)
[2018-04-11 20:27] LABS: CHLAM PCR NOT DETECTED (NOT DETECT); GON PCR NOT DETECTED (NOT DETECT)
== END 2018-04-11 19:20 | disposition home or self-care (01) ==
LOC: ER 16:42
DX: R30.0 Dysuria (principal); Z20.2 Contact with and (suspected) exposure to infections with a predominantly sexual mode of transmission
CPT/HCPCS: 99283; 96372; 87086; 81001; 87491; 87591; Q0144; J3490; J0696

== ENCOUNTER 2018-04-20 21:02 | Emergency (ER) | payer MEDICAID ==
[2018-04-20] MEDS ORDERED: ONDANSETRON 4 MG TAB.RAPDIS PO ONE (22:40)
[2018-04-20] MEDS ORDERED: NORMAL SALINE 1000 ML 1,000 ML IV ONE ×2 (22:40)
--- NOTE | 2018-04-20 22:42 | ER Document Report ---
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 Patient states he remembers going down onto the ground. He woke up and told everybody get off of them. Mom states she thinks he had a seizure. No head injury reported. Patient states he feels a little bit nauseated and a little bit shaky now but otherwise he feels okay. TRAVEL OUTSIDE OF THE [place] IN LAST 30 DAYS: No - Related Data Allergies/Adverse Reactions: No Known Allergies Allergy (Verified 04/11/18 16:43) Past Medical History - Social History Chew tobacco use (# tins/day): No Frequency of alcohol use: None Drug Abuse: None Pulmonary Medical History: Reports: Hx Bronchitis Renal/ Medical History: Denies: Hx Peritoneal Dialysis Musculoskeltal Medical History: Reports Hx Arthritis, Reports Hx Musculoskeletal Deformity - Degenerative disc disease with sciatica, Reports Hx Musculoskeletal Trauma Psychiatric Medical History: Reports: Hx Attention Deficit Hyperactivity Disorder Traumatic Medical History: Denies: Hx Fractures Past Surgical History: Reports: Hx Adenoidectomy, Hx Oral Surgery, Hx Tonsillectomy - Immunizations Immunizations up to date: Yes Hx Diphtheria, Pertussis, Tetanus Vaccination: Yes Physical Exam - Vital signs Vitals: Temp Pulse Resp BP Pulse Ox 97.6 F 65 17 121/58 L 100 04/20/18 21:13 04/20/18 21:13 04/20/18 21:13 04/20/18 21:13 04/20/18 21:13 - Neurological Cognition: Normal Orientation: AAOx4 Ladonna Coma Scale Eye Opening: Spontaneous [place] Coma Scale Verbal: Oriented [place] Coma Scale Motor: Obeys Commands Ladonna Coma Scale Total: 15 Speech: Normal Cranial nerves: Normal Cerebellar coordination: Normal Motor strength normal: LUE, RUE, LLE, RLE Additional motor exam normals: Equal 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 - Vital Signs Vital signs: Temp Pulse Resp BP Pulse Ox 97.6 F 65 17 121/58 L 100 04/20/18 21:13 04/20/18 21:13 04/20/18 21:13 04/20/18 21:13 04/20/18 21:13
--- NOTE | 2018-04-21 00:02 | ER Document Report ---
ED General - General Chief Complaint: Probable Seizure Stated Complaint: FAINTED Time Seen by Provider: 04/20/18 22:35 Notes: This is a 22 year-old male to the emergency department for evaluation of possible heat injury. 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 States that he was hot. Mother states that after work he felt like he was going to pass out. States that patient was pale and shaking. TRAVEL OUTSIDE OF THE [place] IN LAST 30 DAYS: No - HPI Onset: Just prior to arrival Onset/Duration: Gradual Quality of pain: Achy Severity: Mild Pain Level: 0 Associated symptoms: Slow to respond, Sweating, Weakness - Related Data Allergies/Adverse Reactions: No Known Allergies Allergy (Verified 04/11/18 16:43) Past Medical History - General Information source: Patient - Social History Smoking Status: Never Smoker Chew tobacco use (# tins/day): No Frequency of alcohol use: None Drug Abuse: None Lives with: Family Family History: Reviewed & Not Pertinent, DM, Hypertension Patient has suicidal ideation: No Patient has homicidal ideation: No Pulmonary Medical History: Reports: Hx Bronchitis Renal/ Medical History: Denies: Hx Peritoneal Dialysis Musculoskeletal Medical History: Reports Hx Arthritis, Reports Hx Musculoskeletal Deformity - Degenerative disc disease with sciatica, Reports Hx Musculoskeletal Trauma Psychiatric Medical History: Reports: Hx Attention Deficit Hyperactivity Disorder Traumatic Medical History: Denies: Hx Fractures Past Surgical History: Reports: Hx Adenoidectomy, Hx Oral Surgery, Hx Tonsillectomy - Immunizations Immunizations up to date: Yes Hx Diphtheria, Pertussis, Tetanus Vaccination: Yes Review of Systems - Review of Systems Notes: Constitutional: denies: Chills, Diaphoresis, Fever,. Does state that he has some weakness. [place] like he was going to pass out. Taking EENT: denies: Eye discharge, Blurred vision, Tearing, Double vision, Nose congestion, Nose discharge, Throat swelling, Mouth pain Cardiovascular: denies: Palpitations, Heart racing, Orthopnea, Dyspnea. denies : Chest pain Respiratory: denies: Cough, Hurts to breathe, Wheezing, Shortness of breath Gastrointestinal: denies: Abdominal pain, Diarrhea, Nausea, Vomiting, Black stools Genitourinary: denies: Burning, Dysuria, Discharge, Frequency, Flank pain, Hematuria Musculoskeletal: denies: Joint pain, Joint swelling, Muscle pain, Muscle stiffness, back pain Hematologic/Lymphatic: denies: Anemia, Easy bleeding, Easy bruising, Blood clots Neurological/Psychological: denies: Confusion, Dementia, Depression, Loss of consciousness Physical Exam - Vital signs Vitals: Temp Pulse Resp BP Pulse Ox 97.6 F 65 17 121/58 L 100 04/20/18 21:13 04/20/18 21:13 04/20/18 21:13 04/20/18 21:13 04/20/18 21:13 Interpretation: Normal - General General appearance: Appears well, Alert - HEENT Head: Normocephalic, Atraumatic Eyes: Normal Pupils: PERRL - Respiratory Respiratory status: No respiratory distress Chest status: Nontender Breath sounds: Normal Chest palpation: Normal - Cardiovascular Rhythm: Regular Heart sounds: Normal auscultation Murmur: No - Abdominal Inspection: Normal Distension: No distension Bowel sounds: Normal Tenderness: Nontender Organomegaly: No organomegaly - Back Back: Normal, Nontender - Extremities General upper extremity: Normal inspection, Nontender, Normal color, Normal ROM , Normal temperature General lower extremity: Normal inspection, Nontender, Normal color, Normal ROM , Normal temperature, Normal weight bearing. No: Juan's sign - Neurological Neuro grossly intact: Yes Cognition: Normal Orientation: AAOx4 Ladonna Coma Scale Eye Opening: Spontaneous Weld Coma Scale Verbal: Oriented Weld Coma Scale Motor: Obeys Commands Weld Coma Scale Total: 15 Speech: Normal Motor strength normal: LUE, RUE, LLE, RLE Sensory: Normal - Psychological Associated symptoms: Normal affect, Normal mood - Skin Skin Temperature: Warm Skin Moisture: Dry Skin Color: Normal Course - Re-evaluation Re-evalutation: 04/21/18 00:45 This is a well-appearing male in no acute distress who wants to go home. Labs are unremarkable. Tolerating p.o. Blood sugars a little low at 69 but sitting upright and given him something to eat. At this time will DC. No evidence of severe heat injury. - Vital Signs Vital signs: Temp Pulse Resp BP Pulse Ox 98.4 F 52 L 14 124/72 100 04/20/18 23:20 04/20/18 23:20 04/20/18 23:20 04/20/18 23:20 04/20/18 23:20 - Laboratory Result Diagrams: 04/20/18 23:53 Laboratory results interpreted by me: 04/20/18 23:53 Potassium 3.5 L Glucose 69 L Discharge - Discharge Clinical Impression: Dehydration after exertion Condition: Good Disposition: HOME, SELF-CARE Instructions: Dehydration ([facility]) Forms: Return to Work
[2018-04-21 00:27] LABS: ALANINE AMINOTRANSFERASE 27 U/L (21-72); ALBUMIN 3.9 g/dL (3.5-5.0); ALKALINE PHOSPHATASE 52 U/L (38-126); ANION GAP 13 (5-19); ASPARTATE AMINO TRANSFERASE 20 U/L (17-59); BILIRUBIN,DIRECT 0.3 mg/dL (0.0-0.4); BILIRUBIN,TOTAL 0.6 mg/dL (0.2-1.3); BLOOD UREA NITROGEN 13 mg/dL (7-20); CALCIUM 8.6 mg/dL (8.4-10.2); CARBON DIOXIDE 24 mmol/L (22-30); CHLORIDE 105 mmol/L (98-107); CREATINE KINASE 161 U/L (55-170); GLUCOSE 69 mg/dL (75-110); POTASSIUM 3.5 mmol/L (3.6-5.0); SODIUM 142.1 mmol/L (137-145); TOTAL PROTEIN 6.4 g/dL (6.3-8.2)
[2018-04-21 01:15] VITALS: BP 134/68
== END 2018-04-21 01:15 | disposition home or self-care (01) ==
LOC: ER 21:02
DX: E86.0 Dehydration (principal); R53.1 Weakness; R61 Generalized hyperhidrosis
CPT/HCPCS: 99284; 36415; 82550; 80053; S0119; J7030 ×2

== ENCOUNTER 2018-05-25 19:38 | Emergency (ER) | payer MEDICAID ==
[2018-05-25] MEDS ORDERED: RINGERS SOLUTION,LACTATED 1,000 ML IV ONE (20:24)
[2018-05-25] MEDS ORDERED: LIDOCAINE 1% INJ-PF (10 MG/ML) 30 ML SDV INJ ONE (21:20)
--- NOTE | 2018-05-25 21:20 | ER Document Report ---
HPI - HPI Pain Level: 4 Notes: Patient is a 22-year-old male who presents to the ED requesting for his lt great toenail to be partially excised as I performed on him in the past. Patient states that the pain is causing him to feel weaker than usual. Patient states that he does work out in the sun, but is drinking and eating without difficulties. He is urinating normally. Patient states that he has not had any episodes of syncope and otherwise feels well. Patient states that it is his toe that is bothering him the most and that is what he wants focused on today. Patient states that he has not been able to get into his primary care doctor because they have been busy and they told him to come here. I reviewed with patient that he put on his complaints sheet dizziness, passing out, and seizures. Patient states that he does not have an actual diagnosis of seizures. Patient states that he stood up, felt dizzy, and was not sure if that was a seizure or not. Patient states that this occurred weeks ago. He denies any drug allergies. No other concerns or complaints at this time. Denies any headache, fever, head injury, neck pain, changes in vision/speech/ mentation/hearing, URI, sore throat, chest pain, palpitations, syncope, cough, shortness of breath, wheeze, dyspnea, abdominal pain, nausea/vomiting/diarrhea, urinary retention, dysuria, hematuria, loss of control of bowel or bladder, numbness/tingling, saddle anesthesia, muscle paralysis/weakness, or rash. - ROS Systems Reviewed and Negative: Yes All other systems reviewed and negative - REPRODUCTIVE Reproductive: DENIES: : Past Medical History - Social History Smoking Status: Current Every Day Smoker Family History: Reviewed & Not Pertinent, DM, Hypertension Pulmonary Medical History: Reports: Hx Bronchitis Renal/ Medical History: Denies: Hx Peritoneal Dialysis Musculoskeletal Medical History: Reports Hx Arthritis, Reports Hx Musculoskeletal Deformity - Degenerative disc disease with sciatica, Reports Hx Musculoskeletal Trauma Psychiatric Medical History: Reports: Hx Attention Deficit Hyperactivity Disorder Traumatic Medical History: Denies: Hx Fractures Past Surgical History: Reports: Hx Adenoidectomy, Hx Oral Surgery, Hx Tonsillectomy - Immunizations Immunizations up to date: Yes Hx Diphtheria, Pertussis, Tetanus Vaccination: Yes Vertical Provider Document - CONSTITUTIONAL Agree With Documented VS: Yes Notes: PHYSICAL EXAMINATION: GENERAL: Well-appearing, well-nourished and in no acute distress. A&Ox4. Answers questions appropriately. LUNGS: Breath sounds clear to auscultation bilaterally and equal. No wheezes rales or rhonchi. HEART: Regular rate and rhythm without murmurs, rubs, gallops. Musculoskeletal: Lt foot/ankle: FROM to passive/active. Strength 5+/5. N/V intact distal. + tenderness to the lateral nail fold of great toe. No bony tenderness of the foot. Achilles intact. No obvious abscess or paronychia. + mild erythema noted. Extremities: No cyanosis, clubbing, or edema b/l. Peripheral pulses 2+. Capillary refill less than 3 seconds. NEUROLOGICAL: Normal speech, normal gait. Normal sensory, motor exams PSYCH: Normal mood, normal affect. SKIN: see above. Warm, Dry, normal turgor, no rashes or lesions noted. - INFECTION CONTROL TRAVEL OUTSIDE OF THE [place] IN LAST 30 DAYS: No Course - Re-evaluation Re-evalutation: 05/25/18 22:00 Patient is an afebrile, well-hydrated, 22-year-old male who presents to the ED with an ingrown toenail and minimal cellulitis to the left lateral nail of the great toe. Vitals are acceptable. PE is otherwise unremarkable for any neurovascular compromise, obvious tendon/ligament rupture, obvious fracture/ dislocation, septic joint. Partial nail excision was performed successfully without any complications. Patient tolerated procedure well. Wound was thoroughly irrigated and cleansed. Wound dressing was placed and wound instructions reviewed. I will send him home with a prescription for bactrim. Conservative measures otherwise for symptoms. Recheck with your PCM in 3-5 days. Schedule a consult with podiatry. Return to the ED with any worsening/ concerning symptoms otherwise as reviewed discharge. Patient is in agreement. - Vital Signs Vital signs: Temp Pulse Resp BP Pulse Ox 98.1 F 88 16 129/77 H 99 05/25/18 19:48 05/25/18 19:48 05/25/18 19:48 05/25/18 19:48 05/25/18 19:48 Procedures - Additional Procedures Partial nail excision Time performed: 23:55 Additional Procedures: Other - pt tolerated proc well, no complications. digital block performed with 1% lido w/o epi. partial nail excised successfully wound dressing placed Discharge - Discharge Clinical Impression: Ingrown left big toenail Condition: Stable Disposition: HOME, SELF-CARE Additional Instructions: Keep the skin clean Wash with soap and water Tylenol/ibuprofen if needed Triple antibiotic ointment daily Take medication as directed Monitor for any worsening symptoms Recheck with your PCM in 3-5 days Schedule an appointment with podiatry for further evaluation and management Return to the ED with any worsening symptoms and/or development of fever, headache, chest pain, palpitations, syncope, shortness of breath, trouble breathing, abdominal pain, n/v/d, abscess, purulent discharge, red streaks, worsening swelling, or other worsening symptoms that are concerning to you. Prescriptions: Sulfamethoxazole/Trimethoprim [Bactrim Ds Tablet] 1 each PO BID #20 tablet Forms: Elevated Blood Pressure, Smoking Cessation Education Referrals: SHERRIE WALDEN DPM [ACTIVE STAFF] - Follow up in 1 week
[2018-05-25 22:31] VITALS: BP 121/67
== END 2018-05-25 22:32 | disposition home or self-care (01) ==
LOC: ER 19:38
PROC: 0HBRXZZ Excision of Toe Nail, External Approach (ICD-10-PCS; principal; 2018-05-25)
DX: L60.0 Ingrowing nail (principal); R42 Dizziness and giddiness; F17.200 Nicotine dependence, unspecified, uncomplicated
CPT/HCPCS: 99283

== ENCOUNTER 2018-08-13 12:49 | Emergency (ER) | payer MEDICAID ==
[2018-08-13 13:52] LABS: APPEARANCE,URINE CLEAR; BILIRUBIN,URINE NEGATIVE (NEGATIVE); COLOR,URINE YELLOW; GLUCOSE, URINE NEGATIVE (NEGATIVE); KETONES,URINE NEGATIVE (NEGATIVE); LEUKOCYTE ESTERASE,URINE NEGATIVE (NEGATIVE); NITRITE,URINE NEGATIVE (NEGATIVE); PROTEIN,URINE NEGATIVE (NEGATIVE); URINE SPECIFIC GRAVITY 1.029; UROBILINOGEN,URINE NEGATIVE mg/dL (<2.0)
--- NOTE | 2018-08-13 13:55 | ER Document Report ---
ED GI/ - General Chief Complaint: Penile Pain Stated Complaint: PAIN WITH URINATION Time Seen by Provider: 08/13/18 13:10 Mode of Arrival: Ambulatory Information source: Patient Notes: 22-year-old male presents to ED for complaint of pain and burning with urination and constant pain in the end of his penis. He states he had unprotected sex about 4 weeks ago but has not noticed any drainage from his penis. Patient denies any discharge bleeding or any other concerns. He is alert and oriented respirations regular and unlabored speaking in full sentences walks with a even steady gait. TRAVEL OUTSIDE OF THE [place] IN LAST 30 DAYS: No - HPI Patient complains to provider of: Other - Pain with urination, penile pain Onset: Last week Timing/Duration: Gradual Quality of pain: Burning, Other - Pressure Severity at maximum: Moderate Severity in ED: Moderate Pain Level: 3 Associated symptoms: Urinary frequency, Urinary urgency, Other - Pain with urination. denies: Penile discharge Exacerbated by: Other - Urination Relieved by: Denies Similar symptoms previously: No - Related Data Allergies/Adverse Reactions: No Known Allergies Allergy (Verified 05/25/18 19:40) Past Medical History - General Information source: Patient - Social History Smoking Status: Unknown if Ever Smoked Frequency of alcohol use: None Drug Abuse: None Lives with: Family Family History: Reviewed & Not Pertinent, DM, Hypertension Patient has suicidal ideation: No Patient has homicidal ideation: No - Past Medical History Cardiac Medical History: Reports: None Pulmonary Medical History: Reports: Hx Bronchitis EENT Medical History: Reports: None Neurological Medical History: Reports: None Endocrine Medical History: Reports: None Renal/ Medical History: Reports: None Malignancy Medical History: Reports None GI Medical History: Reports: None Musculoskeletal Medical History: Reports Hx Arthritis, Reports Hx Musculoskeletal Deformity - Degenerative disc disease with sciatica, Reports Hx Musculoskeletal Trauma Skin Medical History: Reports None Psychiatric Medical History: Reports: Hx Attention Deficit Hyperactivity Disorder Traumatic Medical History: Reports: None Infectious Medical History: Reports: None Past Surgical History: Reports: Hx Adenoidectomy, Hx Oral Surgery, Hx Tonsillectomy - Immunizations Immunizations up to date: Yes Hx Diphtheria, Pertussis, Tetanus Vaccination: Yes Review of Systems - Review of Systems Notes: REVIEW OF SYSTEMS: CONSTITUTIONAL : Denies fever, chills, or sweats. Denies recent illness. EENT: Denies eye, ear, throat, or mouth pain or symptoms. Denies nasal or sinus congestion or discharge. Denies throat, tongue, or mouth swelling or difficulty swallowing. CARDIOVASCULAR: Denies chest pain. Denies palpitations or racing or irregular heart beat. Denies ankle edema. RESPIRATORY: Denies cough, cold, or chest congestion. Denies shortness of breath, difficulty breathing, or wheezing. GASTROINTESTINAL: Denies abdominal pain or distention. Denies nausea, vomiting , or diarrhea. Denies blood in vomitus, stools, or per rectum. Denies black, tarry stools. Denies constipation. GENITOURINARY: Planes of painful urination, burning, frequency, blood in urine, but no discharge. MUSCULOSKELETAL: Denies back or neck pain or stiffness. Denies joint pain or swelling. SKIN: Denies rash, lesions or sores. HEMATOLOGIC : Denies easy bruising or bleeding. LYMPHATIC: Denies swollen, enlarged glands. NEUROLOGICAL: Denies confusion or altered mental status. Denies passing out or loss of consciousness. Denies dizziness or lightheadedness. Denies headache. Denies weakness or paralysis or loss of use of either side. Denies problems with gait or speech. Denies sensory loss, numbness, or tingling. Denies seizures. PSYCHIATRIC: Denies anxiety or stress. Denies depression, suicidal ideation, or homicidal ideation. ALL OTHER SYSTEMS REVIEWED AND NEGATIVE. Dictation was performed using [employer] recognition software PHYSICAL EXAMINATION: GENERAL: Well-appearing, well-nourished and in no acute distress. HEAD: Atraumatic, normocephalic. EYES: Pupils equal round and reactive to light, extraocular movements intact, sclera anicteric, conjunctiva are normal. ENT: Nares patent, oropharynx clear without exudates. Moist mucous membranes. NECK: Normal range of motion, supple without lymphadenopathy LUNGS: Breath sounds clear to auscultation bilaterally and equal. No wheezes rales or rhonchi. HEART: Regular rate and rhythm without murmurs ABDOMEN: Soft, nontender, nondistended abdomen. No guarding, no rebound. No masses appreciated. Musculoskeletal: Normal range of motion, no pitting or edema. No cyanosis. NEUROLOGICAL: Cranial nerves grossly intact. Normal speech, normal gait. Normal sensory, motor exams PSYCH: Normal mood, normal affect. SKIN: Warm, Dry, normal turgor, no rashes or lesions noted. Physical Exam - Vital signs Vitals: Temp Pulse Resp BP Pulse Ox 98 F 77 18 127/65 H 97 08/13/18 12:59 08/13/18 12:59 08/13/18 12:59 08/13/18 12:59 08/13/18 12:59 Course - Vital Signs Vital signs: Temp Pulse Resp BP Pulse Ox 98.3 F 71 16 132/74 H 99 08/13/18 14:47 08/13/18 14:47 08/13/18 14:47 08/13/18 14:47 08/13/18 14:47 Discharge - Discharge Clinical Impression: Urethritis Condition: Stable Disposition: HOME, SELF-CARE Additional Instructions: Urethritis You have urethritis, an infection of the urethra. The usual symptoms are pain on urination and discharge. The infection is often caused by gonorrhea or chlamydia. Treatment is antibiotics. In addition, any sexual contacts should be evaluated by a physician as soon as possible. As this infection can be transmitted sexually, refrain from sexual activity until the infection is confirmed as healed by your physician. If gonorrhea or chlamydia is found on culture, the health department must be notified. Call the doctor at once if you develop difficulty passing your urine, high fever, rash, joint swelling, or other new symptoms. CEPHALOSPORINS: An antibiotic of the cephalosporin class has been prescribed. This type of antibiotic covers a wide variety of infections, including those of the skin, lungs, middle ear, and urinary tract. This antibiotic is somewhat similar to the penicillin family. In rare cases , a person who is allergic to penicillin will also be allergic to this medication. If you have had a severe allergic reaction to penicillin, and have not taken this antibiotic since that time, notify your doctor. Antibiotics which cover many germs ("broad spectrum" antibiotics) are more likely to cause diarrhea or "yeast" infections. Women prone to vaginal yeast problems may suffer an attack after taking this antibiotic. In infants, oral thrush (white spots "stuck" on the cheek) or yeast diaper rash may result. See your doctor if these problems occur. Call the doctor at once if you develop hives, itching, shortness of breath , or lightheadedness. AZITHROMYCIN: Azithromycin (Zithromax) is a broad spectrum antibiotic in the same class as erythromycin. It can treat a variety of bacterial infections, but is most frequently used for respiratory infections. Azithromycin is extremely long-lasting. It accumulates in body tissues and continues to kill bacteria for many days. In order to improve absorption, Azithromycin should be taken at least one hour before or two hours after a meal. It does not have the same strong tendency to upset the stomach as erythromycin and is usually very well tolerated. Patients who have had a rash or other true allergic reactions to erythromycin should not take this medication. Call if you develop gastrointestinal distress, severe diarrhea, rash, hives, itching, or shortness of breath. FOLLOW-UP CARE: If you have been referred to a physician for follow-up care, call the physician s office for an appointment as you were instructed or within the next two days. If you experience worsening or a significant change in your symptoms, notify the physician immediately or return to the Emergency Department at any time for re-evaluation. Local results for urologist [facility] * [facility] [email or web address] [facility] * [email or web address] [address] [place] * [facility] [email or web address] [facility] Dipesh García [place] Forms: Elevated Blood Pressure, Return to Work Referrals: DUSTY BOLIVAR MD [Primary Care Provider] - Follow up as needed
[2018-08-13] MEDS ORDERED: AZITHROMYCIN 250 MG TABLET PO ONE (14:04)
[2018-08-13] MEDS ORDERED: LIDOCAINE 1% INJ-PF (10 MG/ML) 30 ML SDV INJ ONE (14:04)
[2018-08-13] MEDS ORDERED: CEFTRIAXONE INJ 1000 MG VIAL IM ONE (14:04)
[2018-08-13 14:48] VITALS: BP 132/74
[2018-08-13 15:09] LABS: CHLAM PCR NOT DETECTED (NOT DETECT); GON PCR NOT DETECTED (NOT DETECT)
== END 2018-08-13 15:02 | disposition home or self-care (01) ==
LOC: ER 12:49
DX: N34.2 Other urethritis (principal); R35.0 Frequency of micturition; R39.15 Urgency of urination; R31.9 Hematuria, unspecified
CPT/HCPCS: 99283; 96372; 81001; 87491; 87591; Q0144; J3490; J0696

== ENCOUNTER 2019-01-30 20:37 | Emergency (ER) | payer MEDICAID ==
[2019-01-30 21:23] VITALS: BP 124/94
== END 2019-01-30 22:30 | disposition left against medical advice (07) ==
LOC: ER 20:37
DX: Z53.21 Procedure and treatment not carried out due to patient leaving prior to being seen by health care provider (principal)

== ENCOUNTER 2019-02-15 18:12 | Emergency (ER) | payer SELFPAY ==
[2019-02-15 19:28] VITALS: BP 114/73
--- NOTE | 2019-02-15 19:55 | ER Document Report ---
HPI - HPI Patient complains to provider of: left hand pain Time Seen by Provider: 02/15/19 19:38 Onset: Other - 2 weeks ago Quality of pain: Achy Severity: Severe Pain Level: 5 Context: Patient presents emergency department with complaints of pain to his left dorsal hand. He reports he cut himself couple weeks ago. 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 He reports now the area is tender to touch with a hard knot underneath the skin. Denies history of MRSA. No other complaints such as fever vomiting diarrhea. 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[employer] Family History: Reviewed & Not Pertinent, DM, Hypertension Patient has suicidal ideation: No Patient has homicidal ideation: No Pulmonary Medical History: Reports: Hx Bronchitis Renal/ Medical History: Denies: Hx Peritoneal Dialysis Musculoskeletal Medical History: Reports Hx Arthritis, Reports Hx Musculoskeletal Deformity - Degenerative disc disease with sciatica, Reports Hx Musculoskeletal Trauma Psychiatric Medical History: Reports: Hx Attention Deficit Hyperactivity Disorder Traumatic Medical History: Denies: Hx Fractures Past Surgical History: Reports: Hx Adenoidectomy, Hx Oral Surgery, Hx Tonsillectomy - Immunizations Immunizations up to date: Yes Hx Diphtheria, Pertussis, Tetanus Vaccination: Yes Vertical Provider Document - CONSTITUTIONAL Agree With Documented VS: Yes Exam Limitations: No Limitations General Appearance: WD/WN - INFECTION CONTROL TRAVEL OUTSIDE OF THE [place] IN LAST 30 DAYS: No - HEENT HEENT: Atraumatic, Normocephalic - NECK Neck: Supple - RESPIRATORY Respiratory: No Respiratory Distress - CARDIOVASCULAR Cardiovascular: Regular Rate - MUSCULOSKELETAL/EXTREMETIES Musculoskeletal/Extremeties: MAEW, FROM, Tender - left dorsal hand ttp, healing wound noted with firm area, no swelling, no warmth, no discharge, good cap r efill, good radial pulse - NEURO Level of Consciousness: Awake, Alert, Appropriate Motor/Sensory: No Motor Deficit - DERM Integumentary: Warm, Dry Adult Front & Back Diagram: 1 - firm healing wound Course - Vital Signs Vital signs: Temp Pulse Resp BP Pulse Ox 98.0 F 80 14 114/73 98 02/15/19 19:24 02/15/19 19:24 02/15/19 19:24 02/15/19 19:24 02/15/19 19:24 - Diagnostic Test Radiology reviewed: Image reviewed, Reports reviewed - EXAM DESCRIPTION: XR HAND 1-2 VIEWS COMPLETED DATE/TME: 02/15/2019 19:38 CLINICAL HISTORY: hx laceration, ?FB COMPARISON: None FINDINGS: Two x-ray views of the left hand were submitted. There is no acute fracture or dislocation. Bone mineralization is within normal limits. There is no radiopaque foreign body material. IMPRESSION: No acute fracture or dislocation. Discharge - Discharge Clinical Impression: LEFT HAND DORSAL PAIN Condition: Stable Disposition: HOME, SELF-CARE Instructions: Trimethoprim-Sulfa ([facility]) Additional Instructions: *You have been treated for LEFT HAND WOUND *Take medication as prescribed *Monitor the site for signs of infection such as increasing pain, redness, swelling, warmth *Keep your hand clean, do not clean with peroxide, use antibacterial soap, apply topical antibiotic and dressing, do not squeeze the area *Follow up with a primary care provider within one week or return here for wo rsening condition *Return to ED for signs of infection, worsening condition, changes, needs Prescriptions: Sulfamethoxazole/Trimethoprim [Bactrim Ds Tablet] 1 each PO BID #20 tablet Referrals: DUSTY BOLIVAR MD [EMERITUS] - Follow up in 1 week
--- NOTE | 2019-02-15 20:20 | RADIOLOGY REPORT (SQ) ---
EXAM DESCRIPTION: XR HAND 1-2 VIEWS COMPLETED DATE/TME: 02/15/2019 19:38 CLINICAL HISTORY: hx laceration, ?FB COMPARISON: None FINDINGS: Two x-ray views of the left hand were submitted. There is no acute fracture or dislocation. Bone mineralization is within normal limits. There is no radiopaque foreign body material. IMPRESSION: No acute fracture or dislocation.
== END 2019-02-15 20:45 | disposition home or self-care (01) ==
LOC: ER 18:12
DX: S61.412A Laceration without foreign body of left hand, initial encounter (principal); M79.642 Pain in left hand; W25.XXXA Contact with sharp glass, initial encounter
CPT/HCPCS: 99283

== ENCOUNTER 2019-03-26 15:54 | Emergency (ER) | payer SELFPAY ==
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
[2019-03-26 17:01] LABS: ABSOLUTE BASOPHILS # (AUTO) 0.1 10^3/uL (0.0-0.2); ABSOLUTE EOSINOPHILS # (AUTO) 0.1 10^3/uL (0.0-0.6); ABSOLUTE LYMPHOCYTES (AUTO) 2.8 10^3/uL (0.5-4.7); ABSOLUTE MONOCYTES (AUTO) 0.4 10^3/uL (0.1-1.4); ABSOLUTE NEUT (AUTO) 3.1 10^3/uL (1.7-8.2); BASOPHILS % (AUTO) 1.1 % (0-2); EOSINOPHILS % (AUTO) 1.6 % (0-6); HEMATOCRIT 44.9 % (37.9-51.0); HEMOGLOBIN 15.2 g/dL (13.5-17.0); LYMPHOCYTES % (AUTO) 43.6 % (13-45); MEAN CORPUSCULAR HEMOGLOBIN 28.8 pg (27.0-33.4); MEAN CORPUSCULAR HGB CONC 33.9 g/dL (32.0-36.0); MEAN CORPUSCULAR VOLUME 85 fl (80-97); MONOCYTES % (AUTO) 5.6 % (3-13); PLATELET COUNT 246 10^3/uL (150-450); RED BLOOD COUNT 5.28 10^6/uL (4.35-5.55); RED CELL DISTRIBUTION WIDTH 12.6 % (11.5-14.0); SEGMENTED NEUTROPHILS % (AUTO) 48.1 % (42-78); TOTAL CELLS COUNTED % (AUTO) 100 %; WHITE BLOOD COUNT 6.4 10^3/uL (4.0-10.5)
[2019-03-26 17:18] LABS: ALANINE AMINOTRANSFERASE 21 U/L (21-72); ALBUMIN 4.9 g/dL (3.5-5.0); ALKALINE PHOSPHATASE 65 U/L (38-126); ANION GAP 11 (5-19); ASPARTATE AMINO TRANSFERASE 24 U/L (17-59); BILIRUBIN,DIRECT 0.3 mg/dL (0.0-0.4); BILIRUBIN,TOTAL 0.8 mg/dL (0.2-1.3); BLOOD UREA NITROGEN 8 mg/dL (7-20); CALCIUM 9.9 mg/dL (8.4-10.2); CARBON DIOXIDE 28 mmol/L (22-30); CHLORIDE 103 mmol/L (98-107); GLUCOSE 88 mg/dL (75-110); POTASSIUM 4.1 mmol/L (3.6-5.0); SODIUM 141.6 mmol/L (137-145); TOTAL PROTEIN 7.7 g/dL (6.3-8.2)
[2019-03-26 17:19] LABS: ACETAMINOPHEN < 10 ug/mL (10-30); ALCOHOL < 10 mg/dL (NONE DETECTED); SALICYLATE < 1.0 mg/dL (2.0-20.0)
[2019-03-26 20:15] LABS: APPEARANCE,URINE CLEAR; BILIRUBIN,URINE NEGATIVE (NEGATIVE); CALCIUM OXALATE CRYSTALS,URINE FEW /HPF; COLOR,URINE DARK YELLOW; GLUCOSE, URINE NEGATIVE (NEGATIVE); KETONES,URINE 25 mg/dL (NEGATIVE)
[2019-03-26 20:16] LABS: LEUKOCYTE ESTERASE,URINE NEGATIVE (NEGATIVE); NITRITE,URINE NEGATIVE (NEGATIVE); PROTEIN,URINE NEGATIVE (NEGATIVE); UROBILINOGEN,URINE NEGATIVE mg/dL (<2.0)
[2019-03-26 20:42] LABS: URINE AMPHETAMINES SCREEN NEGATIVE; URINE BARBITURATES SCREEN NEGATIVE; URINE BENZODIAZEPINES SCREEN UNCONFIRMED POSITIVE; URINE COCAINE SCREEN UNCONFIRMED POSITIVE; URINE MARIJUANA (THC) SCREEN UNCONFIRMED POSITIVE; URINE METHADONE SCREEN NEGATIVE; URINE PHENCYCLIDINE SCREEN NEGATIVE
--- NOTE | 2019-03-26 23:57 | EKG REPORT ---
SEVERITY:- NORMAL ECG - SINUS RHYTHM : Confirmed by: Cindy Marks 26-Mar-2019 23:57:14
[2019-03-27 12:44] VITALS: BP 124/75
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
== END 2019-03-27 12:35 | disposition other institution (70) ==
LOC: ER 15:54
DX: R45.851 Suicidal ideations (principal); F19.10 Other psychoactive substance abuse, uncomplicated; F11.10 Opioid abuse, uncomplicated; F14.10 Cocaine abuse, uncomplicated; F12.10 Cannabis abuse, uncomplicated; F31.9 Bipolar disorder, unspecified; R45.850 Homicidal ideations
CPT/HCPCS: 36415; 80053; 80307; 81001; 85025; 93005; 93010; 99285

== ENCOUNTER 2019-04-25 09:44 | Observation (INO) | payer SELFPAY ==
--- NOTE | 2019-04-25 10:22 | ER Document Report ---
ED Medical Screen (RME) - General Chief Complaint: Finger Injury Stated Complaint: RIGHT INDEX FINGER PAIN Time Seen by Provider: 04/25/19 10:17 TRAVEL OUTSIDE OF THE [place] IN LAST 30 DAYS: No - HPI Notes: 04/25/19 10:21 Patient is a 23-year-old male who presents complaining of right index finger abscess swelling and inability to flex his finger over the past week. 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 Denies drug allergies. Patient states that he has had subjective fevers at home. Denies [place], fever, neck pain, URI, CP, SOB, Abd pain, dysuria, back pain, or rash. I have treated and performed a rapid initial assessment of this patient. A comprehensive ED assessment and evaluation of the patient, analysis of test results and completion of medical decision making process will be conducted by additional ED providers. PHYSICAL EXAMINATION: GENERAL: Well-appearing, well-nourished and in no acute distress. A&Ox4. Answers questions appropriately. LUNGS: Breath sounds clear to auscultation bilaterally and equal. No wheezes rales or rhonchi. HEART: Regular rate and rhythm without murmurs, rubs, gallops. Rt index finger: + erythema, swelling, purulence, abscess, warmth, and tenderness to palp. LROM to flexion due to pain/swelling. Erythema extends proximally to the hand. N/V intact distal otherwise. - Related Data Allergies/Adverse Reactions: No Known Allergies Allergy (Verified 02/15/19 18:14) Past Medical History - Social History Frequency of alcohol use: None Drug Abuse: None Pulmonary Medical History: Reports: Hx Bronchitis Renal/ Medical History: Denies: Hx Peritoneal Dialysis Musculoskeltal Medical History: Reports Hx Arthritis, Reports Hx Musculoskeletal Deformity - Degenerative disc disease with sciatica, Reports Hx Musculoskeletal Trauma Psychiatric Medical History: Reports: Hx Attention Deficit Hyperactivity Disorder Traumatic Medical History: Denies: Hx Fractures Past Surgical History: Reports: Hx Adenoidectomy, Hx Oral Surgery, Hx Tonsillectomy - Immunizations Immunizations up to date: Yes Hx Diphtheria, Pertussis, Tetanus Vaccination: Yes Physical Exam - Vital signs Vitals: Temp Pulse Resp BP Pulse Ox 97.5 F 81 14 130/99 H 100 04/25/19 09:51 04/25/19 09:51 04/25/19 09:51 04/25/19 09:51 04/25/19 09:51 Course - Vital Signs Vital signs: Temp Pulse Resp BP Pulse Ox 97.5 F 81 14 130/99 H 100 04/25/19 09:51 04/25/19 09:51 04/25/19 09:51 04/25/19 09:51 04/25/19 09:51
[2019-04-25 10:50] LABS: ABSOLUTE EOSINOPHILS # (AUTO) 0.1 10^3/uL (0.0-0.6); ABSOLUTE LYMPHOCYTES (AUTO) 1.7 10^3/uL (0.5-4.7); ABSOLUTE MONOCYTES (AUTO) 0.5 10^3/uL (0.1-1.4); ABSOLUTE NEUT (AUTO) 5.5 10^3/uL (1.7-8.2); BASOPHILS % (AUTO) 0.5 % (0-2); EOSINOPHILS % (AUTO) 1.4 % (0-6); HEMATOCRIT 44.5 % (37.9-51.0); LYMPHOCYTES % (AUTO) 21.8 % (13-45); MEAN CORPUSCULAR HEMOGLOBIN 28.7 pg (27.0-33.4); MEAN CORPUSCULAR HGB CONC 33.8 g/dL (32.0-36.0); MEAN CORPUSCULAR VOLUME 85 fl (80-97); MONOCYTES % (AUTO) 6.8 % (3-13); PLATELET COUNT 252 10^3/uL (150-450); RED BLOOD COUNT 5.24 10^6/uL (4.35-5.55); RED CELL DISTRIBUTION WIDTH 12.7 % (11.5-14.0); SEGMENTED NEUTROPHILS % (AUTO) 69.5 % (42-78); TOTAL CELLS COUNTED % (AUTO) 100 %; WHITE BLOOD COUNT 7.9 10^3/uL (4.0-10.5)
[2019-04-25 11:09] LABS: ALBUMIN 4.7 g/dL (3.5-5.0); ALKALINE PHOSPHATASE 73 U/L (38-126); ANION GAP 12 (5-19); ASPARTATE AMINO TRANSFERASE 34 U/L (17-59); BILIRUBIN,DIRECT 0.3 mg/dL (0.0-0.4); BILIRUBIN,TOTAL 1.2 mg/dL (0.2-1.3); BLOOD UREA NITROGEN 9 mg/dL (7-20); CALCIUM 9.7 mg/dL (8.4-10.2); CARBON DIOXIDE 27 mmol/L (22-30); CHLORIDE 101 mmol/L (98-107); GLUCOSE 83 mg/dL (75-110); POTASSIUM 4.2 mmol/L (3.6-5.0); TOTAL PROTEIN 7.4 g/dL (6.3-8.2)
--- NOTE | 2019-04-25 11:49 | RADIOLOGY REPORT (SQ) ---
EXAM DESCRIPTION: HAND RIGHT 3 VIEWS COMPLETED DATE/TIME: 04/25/2019 11:08 am REASON FOR STUDY: rt index finger swelling/abscess COMPARISON: None. EXAM PARAMETERS: NUMBER OF VIEWS: Three views. TECHNIQUE: AP, lateral and oblique radiographic images acquired of the right hand. LIMITATIONS: None. FINDINGS: MINERALIZATION: Normal. BONES: No acute fracture or dislocation. No worrisome bone lesions. JOINTS: No effusions. SOFT TISSUES: Mild soft tissue swelling surrounding the proximal phalanx of the 2nd digit. OTHER: No other significant finding. IMPRESSION: Slight soft tissue swelling. No underlying bony abnormality or foreign body. TECHNICAL DOCUMENTATION: JOB ID: [id number] [employer]- All Rights Reserved Reading location - IP/workstation name: [email or web address]
--- NOTE | 2019-04-25 12:43 | ER Document Report ---
ED General - General Chief Complaint: Finger Injury Stated Complaint: RIGHT INDEX FINGER PAIN Time Seen by Provider: 04/25/19 10:17 TRAVEL OUTSIDE OF THE [place] IN LAST 30 DAYS: No - HPI Notes: 23-year-old male to the emergency department with complaints of a right index finger infection that has been getting worse since last week. Patient states that he cut his finger several weeks ago and it has gotten worse. 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 He states that his finger has gotten progressively more swollen, red, and painful. He denies any fevers or chills. He is [id number]. - Related Data Allergies/Adverse Reactions: No Known Allergies Allergy (Verified 04/25/19 11:10) Past Medical History - General Information source: Patient - Social History Smoking Status: Current Every Day Smoker Frequency of alcohol use: None Drug Abuse: None Family History: Reviewed & Not Pertinent, DM, Hypertension Patient has suicidal ideation: No Patient has homicidal ideation: No Pulmonary Medical History: Reports: Hx Bronchitis Renal/ Medical History: Denies: Hx Peritoneal Dialysis Musculoskeletal Medical History: Reports Hx Arthritis, Reports Hx Musculoskeletal Deformity - Degenerative disc disease with sciatica, Reports Hx Musculoskeletal Trauma Psychiatric Medical History: Reports: Hx Attention Deficit Hyperactivity Disorder Traumatic Medical History: Denies: Hx Fractures Past Surgical History: Reports: Hx Adenoidectomy, Hx Oral Surgery, Hx Tonsillectomy - Immunizations Immunizations up to date: Yes Hx Diphtheria, Pertussis, Tetanus Vaccination: Yes Review of Systems - Review of Systems Constitutional: denies: Chills, Fever EENT: No symptoms reported Cardiovascular: denies: Chest pain, Palpitations, Orthopnea, Dyspnea, Syncope, Dizziness, Lightheaded Respiratory: denies: Cough, Short of breath Gastrointestinal: denies: Abdominal pain, Diarrhea, Nausea, Vomiting Musculoskeletal: See HPI, Joint pain, Joint swelling Skin: See HPI, Other Neurological/Psychological: No symptoms reported -: Yes All other systems reviewed and negative Physical Exam - Vital signs Vitals: Temp Pulse Resp BP Pulse Ox 97.5 F 81 14 130/99 H 100 04/25/19 09:51 04/25/19 09:51 04/25/19 09:51 04/25/19 09:51 04/25/19 09:51 Interpretation: Normal - General General appearance: Appears well, Alert - HEENT Head: Normocephalic, Atraumatic Eyes: Normal Pupils: PERRL - Respiratory Respiratory status: No respiratory distress Chest status: Nontender Breath sounds: Normal Chest palpation: Normal - Cardiovascular Rhythm: Regular Heart sounds: Normal auscultation Murmur: No - Abdominal Inspection: Normal Distension: No distension Bowel sounds: Normal Tenderness: Nontender Organomegaly: No organomegaly - Back Back: Normal, Nontender - Extremities Notes: To the volar surface of the right index finger there is a noted abscess about 3 cm in diameter. There is mild drainage of serosanguineous fluid but no leslie pu rulent drainage. There is erythema to the volar surface that extends up to the PIP joint and also wraps around the MCP joint to the dorsum of the finger. Patient appears to be stuck in flexion to this finger and has some tenderness to palpation along the flexor sheath. The finger itself appears to be circumferentially edematous as well. He does retain his strength in this finger. He has 5 out of 5 strength against resistance in flexion and extension. Have decrease in range of motion of the finger predominantly at the PIP joint and cannot completely flex the fingerthis is likely due to the edema and wound. Cap refill is less than 2 seconds in all fingers. There is no involvement of t he other fingers in this hand there is no snuffbox tenderness bilaterally radial pulses are intact and equal. handgrip is 5 out of 5 bilaterally. Bilateral hands are extremely dirty. Nontender to palpation over the bilateral wrists elbows and shoulders. Full range of motion and all upper extremity joints except for the right index finger. - Neurological Neuro grossly intact: Yes Cognition: Normal Orientation: AAOx4 [place] Coma Scale Eye Opening: Spontaneous [place] Coma Scale Verbal: Oriented [place] Coma Scale Motor: Obeys Commands [place] Coma Scale Total: 15 Speech: Normal Motor strength normal: LUE, RUE, LLE, RLE Sensory: Normal - Psychological Associated symptoms: Normal affect, Normal mood - Skin Skin Temperature: Warm Skin Moisture: Dry Skin irregularity: other - See discussion of finger and musculoskeletal Course - Re-evaluation Re-evalutation: 04/25/[address] Traore. Stressed my concern over possible evolving flexor tenosynovitis to this finger. 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 Called Dr. Gusman, orthopedist. He was getting ready to scrub for surgery so information was taken by his nurse and relayed to him. He states that he will come down to see the patient after procedure. Dr. Gusman came down and saw the patient. He will plan on admitting him to his service. He will make the patient n.p.o. after midnight and open the wound tomorrow for washout. He has inputted pain medicine and antibiotic therapy. Rounded on patient and he agrees with the plan. Impression: Right finger volar surface abscess with concern for evolving flexor tenosynovitis to the finger. Will admit to the orthopedist service and patient will be taken to surgery tomorrow. - Vital Signs Vital signs: Temp Pulse Resp BP Pulse Ox 97.8 F 79 16 122/73 100 04/25/19 14:48 04/25/19 14:48 04/25/19 14:48 04/25/19 14:48 04/25/19 14:48 - Laboratory Result Diagrams: 04/25/19 10:40 04/25/19 10:40 - Diagnostic Test Radiology reviewed: Image reviewed, Reports reviewed Discharge - Discharge Clinical Impression: Abscess of finger of right hand, Flexor tenosynovitis of finger Condition: Stable Disposition: ADMITTED INPATIENT Admitting Provider: Dr. Brian Gusman (orthopedist) Unit Admitted: Surgical Floor
[2019-04-25] MEDS ORDERED: MORPHINE SULFATE 10 MG/ML INJ IV ONE (13:10)
[2019-04-25] MEDS ORDERED: ONDANSETRON HCL INJ/PF 4 MG/2 ML SDV IV ONE (13:10)
[2019-04-25] MEDS ORDERED: NORMAL SALINE 1000 ML 1,000 ML IV ONE (13:10)
[2019-04-25] MEDS ORDERED: RINGERS SOLUTION,LACTATED 1,000 ML IV PRN (15:01)
--- NOTE | 2019-04-25 15:01 | PDOC H&P ---
History of Present Illness Patient complains of: Right index finger infection History of Present Illness: CAROLINA JOHNSON is a 23 year old male who sustained a laceration with sheet metal at work states it happened weeks ago. Noticed increasing redness and swelling of his digit and this past weekend went to the abscess and drained it but patient states he continued to have pain and drainage from the wound. Denies numbness or tingling. Denies fever or chills. Pain 3/5. Past Medical History Pulmonary Medical History: Reports: Bronchitis Musculoskeltal Medical History: Reports: Arthritis Psychiatric Medical History: Reports: Attention Deficit Hyperactivity Disorder Past Surgical History Past Surgical History: Reports: Tonsillectomy Social History Smoking Status: Current Every Day Smoker Family History Family History: Reviewed & Not Pertinent, DM, Hypertension Parental Family History Reviewed: No Children Family History Reviewed: No Sibling(s) Family History Reviewed.: No Medication/Allergy Home Medications: Cephalexin Monohydrate [Keflex 500 mg Capsule] 500 mg PO BID #20 capsule 01/29/18 Sulfamethoxazole/Trimethoprim [Bactrim Ds Tablet] 1 each PO BID #20 tablet 01/29/18 Cephalexin Monohydrate [Keflex 500 mg Capsule] 500 mg PO Q6H 8 Days capsule 02/05/18 Ibuprofen 800 mg PO Q8HP PRN #60 tablet 02/05/18 Ondansetron [Zofran Odt 4 mg Tablet] 1 - 2 tab PO Q4H PRN #15 tab.rapdis 02/17/18 Sulfamethoxazole/Trimethoprim [Bactrim Ds Tablet] 1 each PO BID #20 tablet 05/25/18 Sulfamethoxazole/Trimethoprim [Bactrim Ds Tablet] 1 each PO BID #20 tablet 02/15/19 Allergies/Adverse Reactions: No Known Allergies Allergy (Verified 04/25/19 11:10) Review of Systems Constitutional: ABSENT: chills, fever(s), headache(s), weight gain, weight loss Eyes: ABSENT: visual disturbances Ears: ABSENT: hearing changes Cardiovascular: ABSENT: chest pain, dyspnea on exertion, edema, orthropnea, palpitations Respiratory: ABSENT: cough, hemoptysis Gastrointestinal: ABSENT: abdominal pain, constipation, diarrhea, hematemesis, hematochezia, nausea, vomiting Genitourinary: ABSENT: dysuria, hematuria Musculoskeletal: PRESENT: as per HPI Integumentary: ABSENT: rash, wounds Neurological: ABSENT: abnormal gait, abnormal speech, confusion, dizziness, focal weakness, syncope Psychiatric: ABSENT: anxiety, depression, homidical ideation, suicidal ideation Endocrine: ABSENT: cold intolerance, heat intolerance, menstrual abnormalities, polydipsia, polyuria Hematologic/Lymphatic: ABSENT: easy bleeding, easy bruising, lymphadenopathy Physical Exam Vital Signs: Temp Pulse Resp BP Pulse Ox 97.8 F 79 16 122/73 100 04/25/19 14:48 04/25/19 14:48 04/25/19 14:48 04/25/19 14:48 04/25/19 14:48 Intake & Output 04/24/19 04/25/19 04/26/19 06:59 06:59 06:59 Intake Total 1000 Balance 1000 Weight 60.4 kg General appearance: PRESENT: no acute distress, well-developed, well-nourished Head exam: PRESENT: atraumatic, normocephalic Eye exam: PRESENT: conjunctiva pink, EOMI, PERRLA. ABSENT: scleral icterus Ear exam: PRESENT: normal external ear exam Mouth exam: PRESENT: moist, tongue midline Neck exam: PRESENT: full ROM. ABSENT: carotid bruit, JVD, lymphadenopathy, thyromegaly Cardiovascular exam: PRESENT: RRR. ABSENT: diastolic murmur, rubs, systolic murmur Pulses: PRESENT: normal dorsalis pedis pul, +2 pedal pulses bilateral Vascular exam: PRESENT: normal capillary refill GI/Abdominal exam: PRESENT: normal bowel sounds, soft. ABSENT: distended, guarding, mass, organolmegaly, rebound, tenderness Rectal exam: PRESENT: deferred Musculoskeletal exam: PRESENT: other - Right index finger: 3 mm x 3 mm wound along the volar aspect of the proximal phalanx with overlying swelling and serosanguineous drainage. No active purulent drainage. Mild tenderness on the flexor sheath with along the middle phalanx and A1 jorge. Cap refill less than 2 seconds. No sensory deficits. No pain with passive stretch. Limited flexion secondary to pain. Neurological exam: PRESENT: alert, awake, oriented to person, oriented to place, oriented to time, oriented to situation, CN II-XII grossly intact. ABSENT: motor sensory deficit Psychiatric exam: PRESENT: appropriate affect, normal mood. ABSENT: homicidal ideation, suicidal ideation Skin exam: PRESENT: dry, intact, warm. ABSENT: cyanosis, rash Results Laboratory Results: 04/25/19 10:40 04/25/19 10:40 04/25/19 04/25/19 10:40 10:40 WBC 7.9 RBC 5.24 Hgb 15.0 Hct 44.5 MCV 85 MCH 28.7 MCHC 33.8 RDW 12.7 Plt Count 252 Seg Neutrophils % 69.5 Lymphocytes % 21.8 Monocytes % 6.8 Eosinophils % 1.4 Basophils % 0.5 Absolute Neutrophils 5.5 Absolute Lymphocytes 1.7 Absolute Monocytes 0.5 Absolute Eosinophils 0.1 Absolute Basophils 0.0 Sodium 139.8 Potassium 4.2 Chloride 101 Carbon Dioxide 27 Anion Gap 12 BUN 9 Creatinine 0.87 Est GFR ( Amer) > 60 Est GFR (Non-Af Amer) > 60 Glucose 83 Calcium 9.7 Total Bilirubin 1.2 AST 34 Alkaline Phosphatase 73 Total Protein 7.4 Albumin 4.7 Impressions: Hand X-Ray 04/25/19 10:20 IMPRESSION: Slight soft tissue swelling. No underlying bony abnormality or foreign body. Status: Image reviewed by ri - Radiographs have been reviewed which demonstrate soft tissue swelling no evidence of osseous abnormality. Assessment & Plan - Diagnosis (1) Abscess of right index finger Is this a current diagnosis for this admission?: Yes Plan: Patient has evidence of volar abscess along the proximal phalanx there is questionable involvement of the flexor sheath although not all [place] signs are met. At this point we will start patient prophylactically on antibiotics and p roceed with set the patient up for operative intervention which includes irrigation debridement right index finger. Risks and benefits have been explained to the patient risks including neurovascular risk, postoperative pain, postoperative stiffness, recurrent infection patient verbalized understanding consented for surgical procedure.
[2019-04-25] MEDS ORDERED: OXYCODONE-ACETAMINOPHEN 5-325 MG TABLET PO PRN (15:03)
[2019-04-25] MEDS ORDERED: MORPHINE SULFATE 10 MG/ML INJ IV PRN (15:03)
[2019-04-25] MEDS ORDERED: DEXTROSE 40% GEL 15 GM TUBE PO PRN ×2 (18:49)
[2019-04-25] MEDS ORDERED: DEXTROSE 50%-WATER 25 GM/50 ML DISP.SYRIN IV PRN ×2 (18:49)
[2019-04-25] MEDS ORDERED: GLUCAGON,HUMAN RECOMB 1 MG INJ SUBCUT PRN (18:49)
[2019-04-26] MEDS ORDERED: BACITRACIN INJ 50,000 UNIT VIAL ONE (08:34)
[2019-04-26] MEDS ORDERED: MIDAZOLAM 2 MG/2 ML INJ ONE (09:01)
[2019-04-26] MEDS ORDERED: FENTANYL CITRATE INJ/PF 100 MCG/2 ML AMPUL ONE (09:01)
[2019-04-26] MEDS ORDERED: PROPOFOL INJ 200 MG/20 ML VIAL IV ONE (09:02)
[2019-04-26] MEDS ORDERED: BUPIVACAINE HCL 0.25% /EPINEPHRINE INJ/PF 30 ML SDV ONE (09:23)
[2019-04-26] MEDS ORDERED: LIDOCAINE 1%/EPINEPHRINE INJ 20 ML VIAL ONE (09:23)
[2019-04-26] MEDS ORDERED: CEFAZOLIN INJ 1 GM VIAL ONE ×2 (09:45→12:47)
[2019-04-26] MEDS ORDERED: BUPIVACAINE HCL 0.25 % INJ/PF (2.5 MG/1 ML) 30 ML VIAL ONE (09:46)
[2019-04-26] MEDS ORDERED: LIDOCAINE 1% INJ-PF (10 MG/ML) 30 ML SDV ONE (09:46)
[2019-04-26] MEDS ORDERED: DIPHENHYDRAMINE HCL 50 MG/ML VIAL IV PRN (09:52)
[2019-04-26] MEDS ORDERED: MEPERIDINE HCL/PF INJ 25 MG/1 ML DISP.SYRIN IV PRN (09:52)
[2019-04-26] MEDS ORDERED: PROMETHAZINE HCL INJ 25 MG/1 ML VIAL IV PRN (09:52)
[2019-04-26] MEDS ORDERED: MORPHINE SULFATE 10 MG/ML INJ IV PRN (09:52)
[2019-04-26] MEDS ORDERED: FENTANYL CITRATE INJ/PF 100 MCG/2 ML AMPUL IV PRN ×3 (09:52)
--- NOTE | 2019-04-26 10:16 | Discharge Summary ---
Discharge Summary (SDC) - Discharge Final Diagnosis: Right index finger flexor tenosynovitis Date of Surgery: 04/26/19 Discharge Date: 04/26/19 Condition: Good Treatment or Instructions: Elevate right upper extremity Prescriptions: Oxycodone HCl/Acetaminophen [Percocet 5-325 mg Tablet] 1 tab PO Q6 PRN #25 tab PRN Reason: Sulfamethoxazole/Trimethoprim [Septra-Ds 800-160 mg Tablet] 1 tab PO BID #20 tablet Discharge Diet: As Tolerated, Regular Respiratory Treatments at Home: Deep Breathing/Coughing Discharge Activity: Activity As Tolerated, Balance Activity w/Rest, No tub bath Home Care Assistance: None Needed Report the Following to Your Physician Immediately: Shortness of Breath, Fever over 101 Degrees, Drainage-Foul Smelling
--- NOTE | 2019-04-26 10:21 | Operative Report ---
Operative Report DATE OF SURGERY: 04/26/19 PREOPERATIVE DIAGNOSIS: Flexor tenosynovitis right index finger OPERATION: Irrigation debridement right index finger flexor tenosynovitis SURGEON: RED TAYLOR ANESTHESIA: LMAC TISSUE REMOVED OR ALTERED: Cultures to microbiology ESTIMATED BLOOD LOSS: Minimal PROCEDURE: With the patient supine and operative table the right upper extremities prepped and draped in sterile fashion. A combination of half percent Marcaine and 1% Xylocaine are injected at the base of the index finger to effect a digital block. Subsequently the transverse laceration which is over the volar surface of the proximal phalanx is extended proximally and radially as well as distally and ulnarly to expose the underlying zone of injury. Cultures are taken. The wound was then meticulously debrided. The flexor tendon sheath is entered and the flexor tendon underlying is intact. There is no evidence of foreign body. At this point the wound is irrigated with normal saline containing bacitracin by gravity approaching 3 L. The wound was then packed with quarter inch iodoform gauze and two 3-0 nylon sutures were used to reapproximate the medial lateral edges of the wound. The digit is then bandaged and the patient's return to the PACU in satisfactory condition.
[2019-04-26] MEDS ORDERED: OXYCODONE-ACETAMINOPHEN 5-325 MG TABLET ONE (11:23)
[2019-04-26 12:39] LABS: ANION GAP 10 (5-19); BLOOD UREA NITROGEN 6 mg/dL (7-20); CALCIUM 9.5 mg/dL (8.4-10.2); CARBON DIOXIDE 24 mmol/L (22-30); CHLORIDE 104 mmol/L (98-107); GLUCOSE 125 mg/dL (75-110); POTASSIUM 4.6 mmol/L (3.6-5.0)
[2019-04-26] MEDS ORDERED: OXYCODONE-ACETAMINOPHEN 5-325 MG TABLET PO PRN (13:30)
--- NOTE | 2019-04-26 17:42 | EKG REPORT ---
SEVERITY:- BORDERLINE ECG - SINUS RHYTHM PROBABLE LEFT ATRIAL ABNORMALITY BORDERLINE T ABNORMALITIES, ANT-LAT LEADS : Confirmed by: Marin Greco MD 26-Apr-2019 17:41:22
[2019-04-26 22:41] VITALS: BP 123/51
== END 2019-04-26 15:24 | disposition home or self-care (01) ==
LOC: ER 09:44 → INTOOBSV 15:37 → EH 15:37 → 5 17:01
PROVIDERS: ADMIT Orthopaedic Surgery; ATTEND Orthopaedic Surgery
PROC: 0LB70ZZ Excision of Right Hand Tendon, Open Approach (ICD-10-PCS; principal; 2019-04-26 09:00)
DX: M65.18 Other infective (teno)synovitis, other site (principal); S61.210A Laceration without foreign body of right index finger without damage to nail, initial encounter; W45.8XXA Other foreign body or object entering through skin, initial encounter; Y99.0 Civilian activity done for income or pay; F17.200 Nicotine dependence, unspecified, uncomplicated
CPT/HCPCS: 11043; 99284; 96361; 96374; 96375; 36415 ×2; 87070 ×2; 87205 ×2; 83735; 85025; 87075; 87077 ×2; 80048; 80053; 87186 ×2; 73130; 93005; 93010; 01810; A6266; J2250; J3490 ×2; J0690; J3010; J2270; J2405; J7030; J7120; J2704

== ENCOUNTER 2019-05-01 21:27 | Emergency (ER) | payer SELFPAY | END 2019-05-01 22:10 | disposition left against medical advice (07) | LOC: ER 21:27 | DX: Z53.21 Procedure and treatment not carried out due to patient leaving prior to being seen by health care provider (principal) ==

== ENCOUNTER 2019-07-27 01:22 | Emergency (ER) | payer SELFPAY ==
[2019-07-27] MEDS ORDERED: TETRACAINE HCL 0.5% OPH SOLN 4 ML OD ONE (02:19)
[2019-07-27] MEDS ORDERED: TETRACAINE HCL 0.5% OPH SOLN 4 ML ONE (06:15)
--- NOTE | 2019-07-27 07:08 | ER Document Report ---
ED Eye Complaint - General Chief Complaint: Eye Pain Stated Complaint: EYE PAIN Time Seen by Provider: 07/27/19 05:49 Notes: This is a 23-year-old gentleman who presents today with a complaint of chemical exposure to both of his eyes. Patient states that he was doing some work when some dizziness fluid and had a chemical splash in his eye. He describes itching and burning which is now resolved. This occurred yesterday around 4 PM. He was not wearing protective eye glasses at the time. He denies any other injuries. Denies any fever or chills. Denies any drainage. TRAVEL OUTSIDE OF THE [place] IN LAST 30 DAYS: No - Related Data Allergies/Adverse Reactions: No Known Allergies Allergy (Verified 04/25/19 11:10) Past Medical History - Social History Smoking Status: Former Smoker Frequency of alcohol use: None Drug Abuse: None Family History: Reviewed & Not Pertinent, DM, Hypertension Patient has suicidal ideation: No Patient has homicidal ideation: No Pulmonary Medical History: Reports: Hx Bronchitis Renal/ Medical History: Denies: Hx Peritoneal Dialysis Musculoskeletal Medical History: Reports Hx Arthritis, Reports Hx Musculoskeletal Deformity - Degenerative disc disease with sciatica, Reports Hx Musculoskeletal Trauma Psychiatric Medical History: Reports: Hx Attention Deficit Hyperactivity Disorder Denies: Hx Depression Traumatic Medical History: Denies: Hx Fractures Past Surgical History: Reports: Hx Adenoidectomy, Hx Oral Surgery, Hx Tonsillectomy - Immunizations Immunizations up to date: Yes Hx Diphtheria, Pertussis, Tetanus Vaccination: Yes Review of Systems - Review of Systems EENT: Eye pain, Tearing. denies: Eye discharge, Blurred vision, Double vision -: Yes All other systems reviewed and negative Physical Exam - Vital signs Interpretation: Normal - General General appearance: Appears well, Alert - HEENT Head: Normocephalic, Atraumatic Eyes: Other - Light injection of the conjunctiva. No drainage. Extra ocular muscles intact. Pupils equally reactive to light. Visual acuity 20/20 in the left, 20/20 on the right, 20/20 bilaterally. Conjunctiva: No: Purulent discharge Eyelashes: Normal Pupils: PERRL Fundascopic: Normal - Respiratory Respiratory status: No respiratory distress Chest status: Nontender Breath sounds: Normal Chest palpation: Normal - Cardiovascular Rhythm: Regular Heart sounds: Normal auscultation Murmur: No - Neurological Neuro grossly intact: Yes Cognition: Normal Orientation: AAOx4 [place] Coma Scale Eye Opening: Spontaneous [place] Coma Scale Verbal: Oriented [place] Coma Scale Motor: Obeys Commands [place] Coma Scale Total: 15 Speech: Normal Motor strength normal: LUE, RUE, LLE, RLE Sensory: Normal Course - Re-evaluation Re-evalutation: 07/27/19 07:08 Patient suggests chemical conjunctivitis. [id number] Irrigated by nurse. Patient did not tolerate it well. Patient reevaluated after irrigation. pH is normal, 8 in both eyes. He is stable for discharge. Instructions given. Patient counseled to use protective glasses at work. Discharge - Discharge Clinical Impression: Chemical conjunctivitis of both eyes Condition: Good Disposition: HOME, SELF-CARE Instructions: Chemical in the Eye ([facility]) Additional Instructions: It is important that you use protective eyeglasses at all times while at work. Prescriptions: Naphazoline HCl/Pheniramine [Naphcon-A Eye Drops] 2 drop OP QID #1 bottle Referrals: OSMANI RUBIO DO [ACTIVE STAFF] - Follow up as needed
== END 2019-07-27 07:39 | disposition home or self-care (01) ==
LOC: ER 01:22
DX: H10.213 Acute toxic conjunctivitis, bilateral (principal); Z87.891 Personal history of nicotine dependence
CPT/HCPCS: 99283; J3490

== ENCOUNTER 2020-07-20 12:52 | Emergency (ER) | payer SELFPAY ==
[2020-07-20 12:58] VITALS: BP 110/64
--- NOTE | 2020-07-20 13:06 | ER Document Report ---
ED ENT - General Chief Complaint: Ear Pain Stated Complaint: EAR PAIN Time Seen by Provider: 07/20/20 12:59 Notes: CHIEF COMPLAINT: Left ear pain for 1 week HPI: 24-year-old male with left ear pain for 1 week. Also states the pain radiates into the left upper teeth. No facial swelling or fever. No drainage from the ear has been using some [id number] drops in the left ear for ear pain. ROS: See HPI - all other systems were reviewed and are otherwise negative Constitutional: no fever Eyes: no drainage, no blurred vision ENT: no runny nose, no sore throat Integumentary: no rash Allergy: no hives MEDICATIONS: I agree with the patient medications as charted by the RN. ALLERGIES: I agree with the allergies as charted by the RN. PAST MEDICAL HISTORY/PAST SURGICAL HISTORY: Reviewed and agree as charted by RN. SOCIAL HISTORY: Reviewed and agree as charted by RN. FAMILY HISTORY: No significant familial comorbid conditions directly related to patient complaint EXAM: Reviewed vital signs as charted by RN. CONSTITUTIONAL: Alert and oriented and responds appropriately to questions. Well-appearing; well-nourished HEAD: Normocephalic; atraumatic EYES: PERRL; Conjunctivae clear, sclerae non-icteric ENT: normal nose; no rhinorrhea; moist mucous membranes; pharynx without lesions noted, no uvula edema or deviation, no tonsillar hypertrophy, phonation normal. Dentition appears intact without significant dental caries in the left upper molars. Right tympanic membrane is pearly soto left tympanic membrane is mildly hyperemic, there is some edema and erythema to the auditory canal of the left ear. Some pain with movement of the left pinna NECK: Supple without meningismus; non-tender; no cervical lymphadenopathy, no masses CARD: Capillary refill less than 3 seconds; symmetric distal pulses RESP: Normal chest excursion without splinting or tachypnea ABD/GI: non-distended BACK: The back appears normal EXT: Normal ROM in all joints; no cyanosis, no effusions, no edema SKIN: Normal color for age and race; warm; dry; good turgor; no acute lesions noted NEURO: Moves all extremities equally; Motor and sensory function intact PSYCH: The patient's mood and manner are appropriate. Grooming and personal hygiene are appropriate. MDM: 24-year-old male with what appears to be a left otitis externa and also a left otitis media. Will place on amoxicillin, Cortisporin drops pain medication refer to ENT TRAVEL OUTSIDE OF THE [place] 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, Reports Hx Musculoskeletal Trauma Psychiatric Medical History: Reports: Hx Attention Deficit Hyperactivity Disorder Denies: Hx Depression Traumatic Medical History: Denies: Hx Fractures Past Surgical History: Reports: Hx Adenoidectomy, Hx Oral Surgery, Hx Tonsillectomy - Immunizations Immunizations up to date: Yes Hx Diphtheria, Pertussis, Tetanus Vaccination: Yes Physical Exam - Vital signs Vitals: Temp Pulse Resp BP Pulse Ox 98.2 F 74 18 110/64 100 07/20/20 12:57 07/20/20 12:57 07/20/20 12:57 07/20/20 12:57 07/20/20 12:57 Course - Vital Signs Vital signs: Temp Pulse Resp BP Pulse Ox 98.2 F 74 18 110/64 100 07/20/20 12:57 07/20/20 12:57 07/20/20 12:57 07/20/20 12:57 07/20/20 12:57 Discharge - Discharge Clinical Impression: Otitis externa Qualifiers: Otitis externa type: other infective Chronicity: acute Laterality: left Qualified Code(s): H60.392 - Other infective otitis externa, left ear Otitis media Qualifiers: Otitis media type: unspecified Chronicity: acute Qualified Code(s): H66.90 - Otitis media, unspecified, unspecified ear Condition: Stable Disposition: HOME, SELF-CARE Additional Instructions: Use the eardrops as prescribed. Take the amoxicillin to treat the inner ear infection. It was noted today that you appear to have an infection of the canal of the left ear as well. Pain medication as prescribed do not drive if taking narcotics for pain. Follow-up closely with both your primary care provider and ENT for further evaluation and treatment call for appointment Prescriptions: Amoxicillin 1 tab PO TID #30 tab Neomy Sulf/Polymyx B Sulf/Hc [Cortisporin Otic Susp] 2 drop TID 7 Days #1 bottle Hydrocodone/Acetaminophen [[place] 5-325 mg Tablet] 1 tab PO Q4 PRN #15 tablet PRN Reason: Referrals: SANDRO JOHNSON DO [ASSOCIATE] - Follow up as needed
== END 2020-07-20 13:05 | disposition home or self-care (01) ==
LOC: ER 12:52
DX: H60.392 Other infective otitis externa, left ear (principal); H66.90 Otitis media, unspecified, unspecified ear
CPT/HCPCS: 99284